=== PATIENT | female | born 1945 | race Caucasian/White ===

== ENCOUNTER 2016-05-07 14:42 | Inpatient (IN) | payer MEDICARE, MEDICAID ==
[~2016-05-07] VITALS: Ht 165.1 cm; Wt 69.9 kg
[2016-05-07 15:36] LABS: BASOPHILS % (AUTO) 0.3 % (0.0-2.0); DIFF TOTAL % 100 %; EOSINOPHILS # (AUTO) 0.3 /CMM (0.0-0.7); HEMATOCRIT 42 % (33-45); HEMOGLOBIN 13.5 g/dL (11.5-14.8); LYMPHOCYTES # (AUTO) 1.5 /CMM (0.8-4.8); LYMPHOCYTES % (AUTO) 15.8 % (20.0-44.0); MEAN CORPUSCULAR HEMOGLOBIN 30 PG (26.0-33.0); MEAN CORPUSCULAR HGB CONC 33 g/dl (31.0-36.0); MEAN CORPUSCULAR VOLUME 93 fL (82-100); MONOCYTES # (AUTO) 0.9 /CMM (0.1-1.30); MONOCYTES % (AUTO) 9.4 % (2.0-12.0); NEUTROPHILS % (AUTO) 71.5 % (43.0-81.0); PLATELET COUNT (AUTO) 164 /CMM (150-450); RED BLOOD CELL COUNT(AUTO) 4.49 MIL/uL (4.0-5.2); WHITE BLOOD COUNT (AUTO) 9.8 K/uL (4.3-11.0)
[2016-05-07 15:46] LABS: ANION GAP 15 (5-14); CALCIUM, SERUM 9.2 mg/dL (8.5-10.1); CARBON DIOXIDE 23 mmol/L (21-32); CHLORIDE 110 mmol/L (98-107); CREATININE 1.5 mg/dL (0.6-1.3); GFR 34 mL/min (>60); GLUCOSE 91 mg/dL (74-106); POTASSIUM 4.2 mmol/L (3.5-5.1); SODIUM SERUM 144 mmol/L (136-145); UREA NITROGEN, BLOOD 33 mg/dL (7-18)
[2016-05-07 15:51] LABS: ALANINE AMINOTRANSFERASE 15 U/L (12-78); ALBUMIN 3.7 g/dL (3.4-5.0); ASPARTATE AMINOTRANSFERASE 11 U/L (15-37); BILIRUBIN,DIRECT 0.1 mg/dL (0.0-0.2); BILIRUBIN,TOTAL 0.3 mg/dL (0.2-1.0); INDIRECT BILIRUBIN 0.2 mg/dL (0.0-1.1); TOTAL PROTEIN, SERUM 8.2 g/dL (6.4-8.2)
[2016-05-07 15:54] LABS: ACETAMINOPHEN 0 ug/ml (10-30); SALICYLATE 0.8 mg/dL (2.8-20.0)
[2016-05-07 16:46] LABS: ADD UA MICROSCOPIC NO; KETONES,URINE NEGATIVE (NEGATIVE); LEUKOCYTE ESTERASE ,URINE NEGATIVE (NEGATIVE)
[2016-05-07 17:00] LABS: CANNABINOID, URINE NEGATIVE (NEGATIVE); PHENCYCLIDINE SCREEN,URINE NEGATIVE (NEGATIVE)
[2016-05-07] MEDS ORDERED: VALS80TA2 PO (17:36)
[2016-05-07] MEDS ORDERED: MAGN400O6 PO (17:36)
[2016-05-07] MEDS ORDERED: ACET-868 PO (17:36)
[2016-05-07] MEDS ORDERED: DIGO250T PO (17:36)
[2016-05-07] MEDS ORDERED: NITR0.4T6 SL (17:36)
[2016-05-07] MEDS ORDERED: DIGO125T PO (17:36)
[2016-05-07] MEDS ORDERED: DEXT15DR6 EACHEYE (17:36)
[2016-05-07] MEDS ORDERED: AMLO2.5T PO (17:36)
[2016-05-07] MEDS ORDERED: AMIO200T2 PO (17:36)
[2016-05-07] MEDS ORDERED: APIX2.5T PO (17:36)
[2016-05-07] MEDS ORDERED: SITA100T PO (17:36)
[2016-05-07 19:10] VITALS: BP 153/61
[2016-05-07] MEDS ORDERED: TEMAZEPAM 7.5 MG CAPSULE PO PRN (20:00)
[2016-05-07] MEDS ORDERED: LORAZEPAM 0.5 MG TABLET PO PRN (20:00)
[2016-05-07] MEDS ORDERED: MAG HYDROX/AL HYDROX/SIMETH 30 ML UDC PO PRN (20:00)
[2016-05-07] MEDS ORDERED: MAGNESIUM HYDROXIDE 30 ML UDC PO PRN ×2 (20:00→21:30)
[2016-05-07] MEDS ORDERED: DIGOXIN 0.125 MG TABLET PO SCH (21:30)
[2016-05-07] MEDS ORDERED: DEXTROSE 50%-WATER 50 ML DISP.SYRIN IV PRN (21:30)
[2016-05-07] MEDS ORDERED: INSULIN REGULAR, HUMAN 100 UNIT/ML 3 ML VIAL SQ PRN (21:30)
[2016-05-07] MEDS ORDERED: NITROGLYCERIN 0.4 MG/TAB BOTTLE SL PRN (21:30)
[2016-05-07] MEDS ORDERED: ACETAMINOPHEN 325 MG TABLET PO PRN (21:30)
[2016-05-07] MEDS ORDERED: POLYVINYL ALCOHOL 15 ML BOTTLE EACHEYE PRN (21:30)
[2016-05-07] MEDS: BLOOD SUGAR DIAGNOSTIC 1 EACH STRIP IN SCH (22:00)
[2016-05-07] MEDS ORDERED: DIGOXIN 0.125 MG TABLET ONE (23:03)
[2016-05-08 01:58] VITALS: BP 153/61
[2016-05-08] MEDS: BLOOD SUGAR DIAGNOSTIC 1 EACH STRIP IN SCH ×4 (07:28→22:09)
[2016-05-08 07:52] LABS: BASOPHILS % (AUTO) 0.3 % (0.0-2.0); DIFF TOTAL % 100 %; EOSINOPHILS # (AUTO) 0.4 /CMM (0.0-0.7); EOSINOPHILS % (AUTO) 5.2 % (0.0-6.0); HEMATOCRIT 39 % (33-45); HEMOGLOBIN 12.8 g/dL (11.5-14.8); LYMPHOCYTES # (AUTO) 1.5 /CMM (0.8-4.8); MEAN CORPUSCULAR HEMOGLOBIN 31 PG (26.0-33.0); MEAN CORPUSCULAR HGB CONC 33 g/dl (31.0-36.0); MEAN CORPUSCULAR VOLUME 92 fL (82-100); MONOCYTES # (AUTO) 0.9 /CMM (0.1-1.30); MONOCYTES % (AUTO) 10.9 % (2.0-12.0); NEUTROPHILS # (AUTO) 5.5 /CMM (1.8-8.9); NEUTROPHILS % (AUTO) 65.6 % (43.0-81.0); PLATELET COUNT (AUTO) 173 /CMM (150-450); RED BLOOD CELL COUNT(AUTO) 4.19 MIL/uL (4.0-5.2); WHITE BLOOD COUNT (AUTO) 8.3 K/uL (4.3-11.0)
[2016-05-08 08:00] VITALS: BP 157/94
[2016-05-08 08:05] LABS: ALBUMIN 3.3 g/dL (3.4-5.0); BILIRUBIN,TOTAL 0.3 mg/dL (0.2-1.0); CALCIUM, SERUM 9.3 mg/dL (8.5-10.1); CREATININE 1.1 mg/dL (0.6-1.3); POTASSIUM 3.9 mmol/L (3.5-5.1); TOTAL PROTEIN, SERUM 7.3 g/dL (6.4-8.2)
[2016-05-08] MEDS: SITAGLIPTIN PHOSPHATE 50 MG TABLET PO SCH (09:29)
[2016-05-08] MEDS: AMLODIPINE BESYLATE 2.5 MG TABLET PO SCH (09:30)
[2016-05-08] MEDS: AMIODARONE HCL 200 MG TABLET PO SCH (09:30)
[2016-05-08] MEDS: VALSARTAN 80 MG TABLET PO SCH ×2 (09:30→16:56)
[2016-05-08] MEDS: ACETAMINOPHEN 325 MG TABLET PO PRN (14:50)
[2016-05-08 16:00] VITALS: BP 126/71
[2016-05-08] MEDS: APIXABAN 2.5 MG TABLET PO SCH (16:58)
[2016-05-08] MEDS: DIVALPROEX SODIUM 125 MG TABLET.DR PO SCH (18:09)
[2016-05-08 20:00] VITALS: BP 145/62
[2016-05-08] MEDS ORDERED: QUETIAPINE FUMARATE 25 MG TABLET PO SCH (22:00)
[2016-05-08] MEDS: DIGOXIN 0.25 MG TABLET PO SCH (22:09)
[2016-05-09] MEDS: BLOOD SUGAR DIAGNOSTIC 1 EACH STRIP IN SCH ×2 (07:54→12:18)
[2016-05-09 08:00] VITALS: BP 115/76
[2016-05-09] MEDS: SITAGLIPTIN PHOSPHATE 50 MG TABLET PO SCH (08:29)
[2016-05-09] MEDS: DIVALPROEX SODIUM 125 MG TABLET.DR PO SCH ×2 (08:29→17:30)
[2016-05-09] MEDS: AMIODARONE HCL 200 MG TABLET PO SCH (08:29)
[2016-05-09] MEDS: AMLODIPINE BESYLATE 2.5 MG TABLET PO SCH (08:30)
[2016-05-09] MEDS: VALSARTAN 80 MG TABLET PO SCH ×2 (08:30→17:00)
[2016-05-09] MEDS: APIXABAN 2.5 MG TABLET PO SCH ×2 (08:32→17:32)
[2016-05-09] MEDS: DIGOXIN 0.125 MG TABLET PO SCH (12:24)
[2016-05-09 16:00] VITALS: BP 106/62
[2016-05-09 20:00] VITALS: BP 140/76
[2016-05-09] MEDS ORDERED: QUETIAPINE FUMARATE 25 MG TABLET PO SCH (22:00)
[2016-05-10 08:00] VITALS: BP 102/71
[2016-05-10] MEDS: SITAGLIPTIN PHOSPHATE 50 MG TABLET PO SCH (08:21)
[2016-05-10] MEDS: DIVALPROEX SODIUM 125 MG TABLET.DR PO SCH ×3 (08:22→16:26)
[2016-05-10] MEDS: AMIODARONE HCL 200 MG TABLET PO SCH (08:22)
[2016-05-10] MEDS: APIXABAN 2.5 MG TABLET PO SCH ×2 (08:25→16:26)
[2016-05-10] MEDS: AMLODIPINE BESYLATE 2.5 MG TABLET PO SCH (08:26)
[2016-05-10] MEDS: VALSARTAN 80 MG TABLET PO SCH ×2 (08:26→16:26)
[2016-05-10] MEDS: ACETAMINOPHEN 325 MG TABLET PO PRN (08:31)
[2016-05-10 09:11] LABS: CALCIUM, SERUM 9.5 mg/dL (8.5-10.1); CREATININE 1.5 mg/dL (0.6-1.3)
[2016-05-10] MEDS: DIGOXIN 0.125 MG TABLET PO SCH (12:10)
[2016-05-10 16:00] VITALS: BP 106/72
[2016-05-10 19:43] VITALS: BP 130/59
[2016-05-10] MEDS: QUETIAPINE FUMARATE 25 MG TABLET PO SCH (21:03)
[2016-05-11 08:00] VITALS: BP 113/68
[2016-05-11] MEDS: AMIODARONE HCL 200 MG TABLET PO SCH (08:27)
[2016-05-11] MEDS: SITAGLIPTIN PHOSPHATE 50 MG TABLET PO SCH (08:27)
[2016-05-11] MEDS: AMLODIPINE BESYLATE 2.5 MG TABLET PO SCH (08:27)
[2016-05-11] MEDS: VALSARTAN 80 MG TABLET PO SCH ×2 (08:28→16:44)
[2016-05-11] MEDS: APIXABAN 2.5 MG TABLET PO SCH ×2 (08:29→16:46)
[2016-05-11] MEDS: DIVALPROEX SODIUM 125 MG TABLET.DR PO SCH ×3 (08:29→16:44)
[2016-05-11 08:41] LABS: CALCIUM, SERUM 8.7 mg/dL (8.5-10.1); CREATININE 1.3 mg/dL (0.6-1.3)
[2016-05-11 16:16] VITALS: BP 115/61
[2016-05-11 20:00] VITALS: BP 116/74
[2016-05-11] MEDS: DIGOXIN 0.25 MG TABLET PO SCH (20:29)
[2016-05-11] MEDS: QUETIAPINE FUMARATE 25 MG TABLET PO SCH (20:30)
[2016-05-12 08:00] VITALS: BP 133/68
[2016-05-12] MEDS: DIVALPROEX SODIUM 125 MG TABLET.DR PO SCH ×4 (08:32→18:06)
[2016-05-12] MEDS: AMLODIPINE BESYLATE 2.5 MG TABLET PO SCH (08:32)
[2016-05-12] MEDS: VALSARTAN 80 MG TABLET PO SCH ×2 (08:32→18:04)
[2016-05-12] MEDS: SITAGLIPTIN PHOSPHATE 50 MG TABLET PO SCH (08:32)
[2016-05-12] MEDS: AMIODARONE HCL 200 MG TABLET PO SCH (08:33)
[2016-05-12] MEDS: APIXABAN 2.5 MG TABLET PO SCH ×2 (08:34→18:04)
[2016-05-12] MEDS: DIGOXIN 0.125 MG TABLET PO SCH (12:42)
[2016-05-12 20:13] VITALS: BP 108/60
[2016-05-12] MEDS: DIVALPROEX SODIUM 500 MG TABLET.DR PO SCH (21:21)
[2016-05-12] MEDS: QUETIAPINE FUMARATE 25 MG TABLET PO SCH (21:21)
[2016-05-13 08:07] VITALS: BP 107/58
[2016-05-13] MEDS: AMLODIPINE BESYLATE 2.5 MG TABLET PO SCH (09:00)
[2016-05-13] MEDS: AMIODARONE HCL 200 MG TABLET PO SCH (09:00)
[2016-05-13] MEDS: VALSARTAN 80 MG TABLET PO SCH ×2 (09:00→17:00)
[2016-05-13] MEDS: APIXABAN 2.5 MG TABLET PO SCH ×2 (09:04→16:20)
[2016-05-13] MEDS: SITAGLIPTIN PHOSPHATE 50 MG TABLET PO SCH (09:04)
[2016-05-13] MEDS: DIVALPROEX SODIUM 125 MG TABLET.DR PO SCH ×2 (09:04→16:21)
[2016-05-13 16:00] VITALS: BP 104/61
[2016-05-13 20:00] VITALS: BP 114/50
[2016-05-13] MEDS: DIGOXIN 0.25 MG TABLET PO SCH (21:40)
[2016-05-13] MEDS: DIVALPROEX SODIUM 500 MG TABLET.DR PO SCH (21:40)
[2016-05-13] MEDS: QUETIAPINE FUMARATE 25 MG TABLET PO SCH (21:40)
[2016-05-14] MEDS: AMIODARONE HCL 200 MG TABLET PO SCH (08:35)
[2016-05-14] MEDS: DIVALPROEX SODIUM 125 MG TABLET.DR PO SCH ×2 (08:36→16:53)
[2016-05-14] MEDS: AMLODIPINE BESYLATE 2.5 MG TABLET PO SCH (08:36)
[2016-05-14] MEDS: SITAGLIPTIN PHOSPHATE 50 MG TABLET PO SCH (08:36)
[2016-05-14] MEDS: APIXABAN 2.5 MG TABLET PO SCH ×2 (08:37→16:53)
[2016-05-14] MEDS: VALSARTAN 80 MG TABLET PO SCH ×3 (08:42→16:55)
[2016-05-14 09:06] VITALS: BP 116/66
[2016-05-14 12:36] VITALS: BP 131/68
[2016-05-14] MEDS: DIGOXIN 0.125 MG TABLET PO SCH (12:36)
[2016-05-14 16:00] VITALS: BP 114/58
[2016-05-14 20:00] VITALS: BP 124/63
[2016-05-14] MEDS: QUETIAPINE FUMARATE 25 MG TABLET PO SCH (21:12)
[2016-05-14] MEDS: DIVALPROEX SODIUM 500 MG TABLET.DR PO SCH (21:12)
[2016-05-15 08:00] VITALS: BP 132/84
[2016-05-15] MEDS: SITAGLIPTIN PHOSPHATE 50 MG TABLET PO SCH (08:24)
[2016-05-15] MEDS: AMIODARONE HCL 200 MG TABLET PO SCH (08:24)
[2016-05-15] MEDS: DIVALPROEX SODIUM 125 MG TABLET.DR PO SCH (08:25)
[2016-05-15] MEDS: AMLODIPINE BESYLATE 2.5 MG TABLET PO SCH (08:25)
[2016-05-15 08:26] VITALS: BP 132/84
[2016-05-15] MEDS: VALSARTAN 80 MG TABLET PO SCH (08:26)
[2016-05-15] MEDS: APIXABAN 2.5 MG TABLET PO SCH (08:27)
== END 2016-05-15 12:00 | DRG 885 ==
LOC: ER 14:44 → GPS 18:42
PROVIDERS: ADMIT Psychiatry & Neurology Psychiatry; ATTEND Nurse Practitioner Acute Care
DX: F29 Unspecified psychosis not due to a substance or known physiological condition (principal); N17.0 Acute kidney failure with tubular necrosis; N18.9 Chronic kidney disease, unspecified; E44.1 Mild protein-calorie malnutrition; I42.9 Cardiomyopathy, unspecified; F03.91 Unspecified dementia, unspecified severity, with behavioral disturbance; I13.0 Hypertensive heart and chronic kidney disease with heart failure and stage 1 through stage 4 chronic kidney disease, or unspecified chronic kidney disease; F41.9 Anxiety disorder, unspecified; I25.10 Atherosclerotic heart disease of native coronary artery without angina pectoris; I50.9 Heart failure, unspecified; I48.91 Unspecified atrial fibrillation; E11.22 Type 2 diabetes mellitus with diabetic chronic kidney disease; E86.9 Volume depletion, unspecified; E03.9 Hypothyroidism, unspecified; Z95.1 Presence of aortocoronary bypass graft; Z73.6 Limitation of activities due to disability; E88.09 Other disorders of plasma-protein metabolism, not elsewhere classified; E11.9 Type 2 diabetes mellitus without complications; E86.0 Dehydration; Z95.0 Presence of cardiac pacemaker; Z68.25 Body mass index [BMI] 25.0-25.9, adult; F31.5 Bipolar disorder, current episode depressed, severe, with psychotic features
CPT/HCPCS: 36415; 80048-TC; 80053-TC; 80061-TC; 80076-TC; 80162-TC; 80164-TC; 80305; 81000-TC; 82962-TC; 85025-TC; 87081-TC; A4606; G0480; G6039-TC; J1815; Z7610

== ENCOUNTER 2017-03-09 13:07 | Inpatient (IN) | payer MEDICARE, MEDICAID ==
[~2017-03-09] VITALS: Ht 165.1 cm; Wt 64.0 kg
[~2017-03-09 13:07] MED LIST: ACET-868 PO; AMIO200T2 PO; AMLO2.5T PO; APIX2.5T PO; DEXT15DR6 EACHEYE; DIGO125T PO; DIGO250T PO; MAGN400O6 PO; NITR0.4T48 SL; SITA100T PO; VALS80TA2 PO
--- NOTE | 2017-03-09 13:10 | NUR ---
PT BIBRA FROM HOME TO ER BED 11. PER REPORT, PT IS C/O HEADACHE AND L SIDED CHEST PAIN X TODAY AFTER STRESSING OUT W/ FAMILY ISSUES. GOWNED AND PLACED ON MONITOR. AWAITING MD HODGES.
--- NOTE | 2017-03-09 15:20 | NUR ---
DR YO AT BEDSIDE FOR EVAL.
--- NOTE | 2017-03-09 15:27 | NUR ---
RADIOLOGICAL HEALTH SPECIALIST AT BEDSIDE FOR BLOOD DRAW.
[2017-03-09 15:37] LABS: BASOPHILS # (AUTO) 0.3 /CMM (0.0-0.2); BASOPHILS % (AUTO) 2.3 % (0.0-2.0); EOSINOPHILS # (AUTO) 0.7 /CMM (0.0-0.7); EOSINOPHILS % (AUTO) 6.4 % (0.0-6.0); HEMATOCRIT 45 % (33-45); HEMOGLOBIN 15.1 g/dL (11.5-14.8); LYMPHOCYTES # (AUTO) 1.7 /CMM (0.8-4.8); LYMPHOCYTES % (AUTO) 15.6 % (20.0-44.0); MEAN CORPUSCULAR HEMOGLOBIN 31 PG (26.0-33.0); MEAN CORPUSCULAR HGB CONC 34 g/dl (31.0-36.0); MEAN CORPUSCULAR VOLUME 93 fL (82-100); MONOCYTES # (AUTO) 0.8 /CMM (0.1-1.30); MONOCYTES % (AUTO) 7.2 % (2.0-12.0); NEUTROPHILS # (AUTO) 7.6 /CMM (1.8-8.9); NEUTROPHILS % (AUTO) 68.5 % (43.0-81.0); PLATELET COUNT (AUTO) 122 /CMM (150-450); WHITE BLOOD COUNT (AUTO) 11.1 K/uL (4.3-11.0)
[2017-03-09 15:47] LABS: CALCIUM, SERUM 9.4 mg/dL (8.5-10.1); CARBON DIOXIDE 26 mmol/L (21-32); CHLORIDE 105 mmol/L (98-107); GLUCOSE 107 mg/dL (74-106); POTASSIUM 3.8 mmol/L (3.5-5.1); SODIUM SERUM 139 mmol/L (136-145); UREA NITROGEN, BLOOD 17 mg/dL (7-18)
[2017-03-09 15:50] LABS: PROTHROMBIN TIME 10.4 SECS (9.5-12.7)
[2017-03-09 15:54] LABS: ALANINE AMINOTRANSFERASE 16 U/L (12-78); ALBUMIN 3.8 g/dL (3.4-5.0); ALKALINE PHOSPHATASE 96 U/L (46-116); ASPARTATE AMINOTRANSFERASE 18 U/L (15-37); BILIRUBIN,DIRECT 0.1 mg/dL (0.0-0.2); BILIRUBIN,TOTAL 0.7 mg/dL (0.2-1.0); TOTAL PROTEIN, SERUM 7.8 g/dL (6.4-8.2)
[2017-03-09 16:00] LABS: TROPONIN I 0.635 ng/mL (0.00-0.056)
--- NOTE | 2017-03-09 17:00 | NUR ---
CALLED NURSING SUP. FOR TELE BED
--- NOTE | 2017-03-09 17:05 | NUR ---
LEVI PAGED, ENVIRONMENTAL FIELD PROFESSIONAL
[2017-03-09] MEDS ORDERED: CLOP75TA15 PO (17:44)
[2017-03-09] MEDS ORDERED: QUET100T PO (17:44)
[2017-03-09] MEDS ORDERED: NITR0.4T48 SL (17:44)
[2017-03-09] MEDS ORDERED: PANT40TA4 PO (17:44)
[2017-03-09] MEDS ORDERED: TEMA15CA PO (17:44)
[2017-03-09] MEDS ORDERED: LORA1TAB PO (17:44)
[2017-03-09] MEDS ORDERED: RIVA1.5C7 PO (17:44)
--- NOTE | 2017-03-09 19:49 | NUR ---
TELE 307-2
[2017-03-09 20:00] VITALS: BP 130/73
--- NOTE | 2017-03-09 20:12 | NUR ---
TRANSFERRED PATIENT TO TELE BED 307 VIA ALS PROTOCOL, NO INCIDENT NOTED.
[2017-03-09 20:15] VITALS: BP 130/73
--- NOTE | 2017-03-09 20:15 | NUR ---
RN OPEN NOTES RECEIVED PATIENT FROM ER VIA [facility] IN STABLE CONDITION. A/O X3. NO SIGNS OF DISTRESS OR DISCOMFORT. BREATHING EVEN AND UNLABORED. IV ACCESS IN L HAND, PATENT AND INTACT, NO SIGNS OF REDNESS OR INFILTRATION. STATES HAVING HEADACHE PAIN 5/10 AT THIS TIME. ORIENTED PATIENT TO UNIT AND ROOM. SKIN INTACT. BED IN LOW LOCKED POSITION WITH SIDE RAILS X2. CALL LIGHT WITHIN REACH. WILL CONTINUE TO MONITOR.
[2017-03-09] MEDS ORDERED: MAGNESIUM HYDROXIDE 30 ML UDC PO PRN (21:30)
[2017-03-09] MEDS ORDERED: NITROGLYCERIN 0.4 MG/TAB BOTTLE SL PRN (21:30)
[2017-03-09] MEDS ORDERED: HYDROCODONE/APAP 5/325MG 1 EACH TABLET PO PRN (21:30)
[2017-03-09] MEDS ORDERED: ACETAMINOPHEN 325 MG TABLET PO PRN (21:30)
[2017-03-09] MEDS ORDERED: Z GUARD REMEDY 2 OZ OINT TP PRN (21:30)
[2017-03-09] MEDS ORDERED: ONDANSETRON HCL/PF 4 MG/2 ML VIAL IVP PRN (21:30)
[2017-03-09] MEDS ORDERED: LORAZEPAM 1 MG TABLET PO PRN (21:30)
[2017-03-09] MEDS ORDERED: ZOLPIDEM TARTRATE 5 MG TABLET PO PRN (21:30)
[2017-03-09] MEDS ORDERED: MAG HYDROX/AL HYDROX/SIMETH 30 ML UDC PO PRN (21:30)
[2017-03-09] MEDS: QUETIAPINE FUMARATE 100 MG TABLET PO SCH (21:52)
[2017-03-09] MEDS: ASPIRIN EC 325 MG TABLET.DR PO SCH (21:52)
[2017-03-10] VITALS: BP 124/51
[2017-03-10 04:00] VITALS: BP 107/57
[2017-03-10 05:14] LABS: CALCIUM, SERUM 8.9 mg/dL (8.5-10.1); CARBON DIOXIDE 25 mmol/L (21-32); CHLORIDE 109 mmol/L (98-107); GLUCOSE 103 mg/dL (74-106); MAGNESIUM 1.9 mg/dL (1.8-2.4); PHOSPHORUS 3.9 mg/dL (2.5-4.9); POTASSIUM 3.5 mmol/L (3.5-5.1); SODIUM SERUM 145 mmol/L (136-145); UREA NITROGEN, BLOOD 18 mg/dL (7-18)
[2017-03-10 05:19] LABS: CHOLESTEROL 159 mg/dL (<200); HDL CHOLESTEROL 61 mg/dL (40-60); LDL 93 mg/dL (0-99); TRIGLYCERIDES 66 mg/dL (30-150)
[2017-03-10 05:23] LABS: BASOPHILS % (AUTO) 0.4 % (0.0-2.0); EOSINOPHILS # (AUTO) 1.1 /CMM (0.0-0.7); EOSINOPHILS % (AUTO) 13.4 % (0.0-6.0); HEMATOCRIT 39 % (33-45); HEMOGLOBIN 13.3 g/dL (11.5-14.8); LYMPHOCYTES % (AUTO) 24.5 % (20.0-44.0); MEAN CORPUSCULAR HEMOGLOBIN 32 PG (26.0-33.0); MEAN CORPUSCULAR HGB CONC 34 g/dl (31.0-36.0); MEAN CORPUSCULAR VOLUME 95 fL (82-100); MONOCYTES # (AUTO) 0.8 /CMM (0.1-1.30); MONOCYTES % (AUTO) 9.9 % (2.0-12.0); NEUTROPHILS # (AUTO) 4.2 /CMM (1.8-8.9); NEUTROPHILS % (AUTO) 51.8 % (43.0-81.0); PLATELET COUNT (AUTO) 118 /CMM (150-450); RDW COEFFICIENT OF VARIATION 14.5 (11.5-15.0); RED BLOOD CELL COUNT(AUTO) 4.11 MIL/uL (4.0-5.2)
--- NOTE | 2017-03-10 06:40 | NUR ---
RN CLOSING NOTES PATIENT RESTING IN BED, EASILY AROUSABLE. A/O X3. NO SIGNS OF DISTRESS OR DISCOMFORT. BREATHING EVEN AND UNLABORED. IV ACCESS IN L HAND, PATENT AND INTACT, NO SIGNS OF REDNESS OR INFILTRATION. ON TELE MONITORING WITH V-PACING 71 NOTED. ALL NEEDS MET. NO SIGNIFICANT CHANGES THROUGH THE NIGHT. BED IN LOW LOCKED POSITION WITH SIDE RAILS X2. CALL LIGHT WITHIN REACH. WILL ENDORSE TO AM SHIFT FOR AJIT.
[2017-03-10 08:00] VITALS: BP 116/70
--- NOTE | 2017-03-10 08:00 | NUR ---
RN OPENING NOTES RECEIVED PATIENT IN BED, ALERT ORIENTED, VERBALLY RESPONSIVE. NO SOB NOTED. NO SIGN OF ACUTE DISTRESS NOTED. BREATHING REGULAR AND UNLABORED. SKIN IS SOFT AND WARM TO TOUCH. IV ACCESS INTACT AND PATENT. NO REDNESS. NO S/SX OF INFILTRATION. SAFETY MEASURES IN PLACE. CALL LIGHT PLACED WITHIN REACH. WILL CONTINUE TO MONITOR ACCORDINGLY.
[2017-03-10] MEDS: AMIODARONE HCL 200 MG TABLET PO SCH (08:52)
[2017-03-10] MEDS: RIVASTIGMINE TARTRATE 1.5 MG CAPSULE PO SCH ×2 (08:53→17:24)
[2017-03-10] MEDS: ASPIRIN EC 325 MG TABLET.DR PO SCH (08:53)
[2017-03-10] MEDS: CLOPIDOGREL BISULFATE 75 MG TABLET PO SCH (08:53)
[2017-03-10] MEDS: PANTOPRAZOLE 40 MG TABLET.DR PO SCH (08:53)
[2017-03-10 12:20] LABS: THYROID STIMULATING HORMONE 3.475 uIU/mL (0.358-3.74)
[2017-03-10] MEDS ORDERED: DIGOXIN 0.125 MG TABLET PO SCH (13:00)
--- NOTE | 2017-03-10 13:30 | NUR ---
RN NOTES PATIENT SEEN AND EVALUATED BY DR. YORK ORDERS NOTED AND CARRIED OUT.
[2017-03-10] MEDS ORDERED: APIXABAN 5 MG TABLET PO ONE (14:00)
[2017-03-10] MEDS: ISOSORBIDE MONONITRATE (30MG) 30 MG TAB.SR.24H PO SCH (14:45)
[2017-03-10 16:00] VITALS: BP 108/63
[2017-03-10] MEDS: APIXABAN 5 MG TABLET PO SCH (17:00)
--- NOTE | 2017-03-10 17:00 | NUR ---
RUBEN NOTES PATIENT WAS JUST ADMINISTERED ELIQUIS AT 1420 DUE TO MEDICATIONS BEING AVAILABLE ON THE FLOOR LATE. DOSE TO CLOSE TO PREVIOUS DOSE. HELD. Addendum: 03/10/17 at 1810 by CALE WINTER RN MS AWARE.
[2017-03-10] MEDS: TEMAZEPAM 15 MG CAPSULE PO SCH (17:29)
--- NOTE | 2017-03-10 19:25 | NUR ---
RN OPEN NOTES RECEIVED PATIENT AWAKE IN BED WATCHING TV. A/O X3. NO SIGNS OF DISTRESS OR DISCOMFORT. BREATHING EVEN AND UNLABORED. IV ACCESS IN L HAND, PATENT AND INTACT, NO SIGNS OF REDNESS OR INFILTRATION. BED IN LOW LOCKED POSITION WITH SIDE RAILS X2. CALL LIGHT WITHIN REACH. WILL CONTINUE TO MONITOR.
--- NOTE | 2017-03-10 19:30 | NUR ---
RN NOTES PATIENT IN BED RESTING NO SOB OR ACUTE DISTRESS NOTED. ALL DUE MEDICATIONS ADMINISTERED ALL NEEDS MET. PERIPHERAL IV INTACT PATENT. BED IN LOW LOCKED POSITION. CALL LIGHT WITHIN REACH. ENDORSED CARE TO PM SHIFT.
[2017-03-10 20:00] VITALS: BP 138/75
[2017-03-10] MEDS: QUETIAPINE FUMARATE 100 MG TABLET PO SCH (21:18)
[2017-03-10] MEDS: ATORVASTATIN 10 MG TABLET PO SCH (21:18)
--- NOTE | 2017-03-11 07:16 | NUR ---
RN CLOSING NOTES PATIENT AWAKE IN BED, EASILY AROUSABLE. A/O X3. NO SIGNS OF DISTRESS OR DISCOMFORT. BREATHING EVEN AND UNLABORED. IV ACCESS IN L HAND, PATENT AND INTACT, NO SIGNS OF REDNESS OR INFILTRATION. ALL NEEDS MET. NO SIGNIFICANT CHANGES THROUGH THE NIGHT. BED IN LOW LOCKED POSITION WITH SIDE RAILS X2. CALL LIGHT WITHIN REACH. ENDORSED TO AM SHIFT FOR AJIT.
--- NOTE | 2017-03-11 07:35 | NUR ---
MS RN OPENING NOTES. RECEIVED PT SITTING AT EDGE OF BED A&0X3, CONVERSATIONAL WITH SOME CONFUSION R/T WHY PT IS IN HOSPITAL. PT TOLERATING ROOM AIR WITHOUT SOB OR RESP DISTRESS. PT DENIES CHEST PAIN AT THIS TIME AND REPORTS BEING PAIN FREE OVERNIGHT. PT WITH IVC AT L HAND REQUIRES NEW DRESSING BUT IS SALINE FLUSHED PATENT. BED IN LOWEST LOCKED POSITION WITH WITH HANDRAILSX2 AND CALL BRODY WITHIN REACH. PT BRIEFED ON TODAY'S POC, PT IS WITHOUT CONCERN OR COMPLAINT THIS TIME.
[2017-03-11 08:00] VITALS: BP 161/90
[2017-03-11] MEDS: PANTOPRAZOLE 40 MG TABLET.DR PO SCH (09:08)
[2017-03-11] MEDS: CLOPIDOGREL BISULFATE 75 MG TABLET PO SCH (09:08)
[2017-03-11] MEDS: RIVASTIGMINE TARTRATE 1.5 MG CAPSULE PO SCH ×2 (09:08→17:20)
[2017-03-11] MEDS: AMIODARONE HCL 200 MG TABLET PO SCH (09:09)
[2017-03-11] MEDS: ISOSORBIDE MONONITRATE (30MG) 30 MG TAB.SR.24H PO SCH (09:09)
[2017-03-11] MEDS: APIXABAN 5 MG TABLET PO SCH ×2 (09:16→17:32)
--- NOTE | 2017-03-11 13:02 | NUR ---
RN NOTES. RN BASED AT DOOR WAY FOR SUPERVISION. PT AT DOOR WAY, APPEARING UNSTABLE/ PT ASSISTED T0 BED. BP X3. LAYING BP:132/77, HR 74, SAO2 97%. SITTING BP:142/67, HR 71, SAO2 97% STANDING BP:141/77, HR 75, SAO2 97% PT REMAINS A&0X3, DENIES PAIN OR DISCOMFORT. NO S/S OF DISTRESS. REPORTS BEING 'NORMAL'.
[2017-03-11] MEDS: TEMAZEPAM 15 MG CAPSULE PO SCH (17:29)
--- NOTE | 2017-03-11 19:30 | NUR ---
RN OPENING NOTES PATIENT IS RESTING IN BED, ALERT AND ORIENTED X3. SITTER PRESENT AT BEDSIDE. VS STABLE. NO C/O PAIN AT THIS TIME. NO SOB NOTED. RESPIRATIONS EVEN AND UNLABORED. IV ACCESS AT L HAND 20 G SL PATENT AND INTACT, FLUSHING WELL WITH NS, NO REDNESS OR INFILTRATION NOTED. BED IN LOW AND LOCKED POSITION, SIDE RAILSX3. CALL LIGHT WITHIN EASY REACH. WILL CONTINUE TO MONITOR AND ASSESS DURING THE SHIFT.
--- NOTE | 2017-03-11 19:48 | NUR ---
RN CLOSING NOTES. PT A&0X1, PREDOMINANTLY UNSETTLED AND WANDERING. PT TURNING OFF BED ALARM AND WANDERING. PT IS UNSTEADY AND IS A HIGH [place]ALLS RISK. PT REQUIRING CONSTANT ATTENTION FOR SAFETY REORIENTATION. PT TOLERATING ROOM AIR WITHOUT SOB. PT REPORTING NO PAIN. PT WITH IVC AT L HAND G#20 INTACT AND SL. BED IN LOWEST LOCKED POSITION WITH HANDRAILSX2 AND CALL BRODY WITHIN REACH. ALL DAY SHIFT DUTIES ATTENDED TO. PT WITHOUT CONCERN OR COMPLAINT. WILL ENDORSE TO NIGHT NURSE.
[2017-03-11 20:00] VITALS: BP_SYST 135; BP_SYST 140; BP_DIAS 71; BP_DIAS 76
[2017-03-11] MEDS: ATORVASTATIN 10 MG TABLET PO SCH (21:50)
[2017-03-11] MEDS: QUETIAPINE FUMARATE 100 MG TABLET PO SCH (21:50)
--- NOTE | 2017-03-12 07:01 | NUR ---
RN CLOSING NOTES PATIENT IS SLEEPING IN BED, EASY TO AROUSE, ALERT AND ORIENTED X3. SITTER PRESENT AT BEDSIDE. VS STABLE. NO SOB NOTED. RESPIRATIONS EVEN AND UNLABORED. IV ACCESS AT L HAND 20 G SL PATENT AND INTACT, FLUSHING WELL WITH NS, NO REDNESS OR INFILTRATION NOTED. ALL NEEDS ARE MET AND MEDICATIONS GIVEN PER MD ORDER. BED IN LOW AND LOCKED POSITION, SIDE RAILSX3. CALL LIGHT WITHIN EASY REACH. WILL ENDORSE TO RN DAY SHIFT FOR AJIT.
--- NOTE | 2017-03-12 07:30 | NUR ---
m/s divinity professor: initial assessment received pt in bed awake, a/ox2-3 with dx: chest pain. p.t. tx in progress. no c/o chest pain or any discomfort. sitter at bedside. no h/l or iv noted at this time. pt refused iv insertion when offered. pt for d'c home today. in no apparent distress noted. will continue to monitor.
[2017-03-12 07:33] LABS: BASOPHILS % (AUTO) 0.3 % (0.0-2.0); EOSINOPHILS # (AUTO) 1.1 /CMM (0.0-0.7); EOSINOPHILS % (AUTO) 13.2 % (0.0-6.0); HEMATOCRIT 38 % (33-45); HEMOGLOBIN 13.3 g/dL (11.5-14.8); LYMPHOCYTES # (AUTO) 2.1 /CMM (0.8-4.8); LYMPHOCYTES % (AUTO) 23.6 % (20.0-44.0); MEAN CORPUSCULAR HEMOGLOBIN 33 PG (26.0-33.0); MEAN CORPUSCULAR HGB CONC 35 g/dl (31.0-36.0); MEAN CORPUSCULAR VOLUME 94 fL (82-100); MONOCYTES # (AUTO) 0.9 /CMM (0.1-1.30); NEUTROPHILS # (AUTO) 4.6 /CMM (1.8-8.9); NEUTROPHILS % (AUTO) 52.9 % (43.0-81.0); PLATELET COUNT (AUTO) 135 /CMM (150-450); RDW COEFFICIENT OF VARIATION 14.9 (11.5-15.0); RED BLOOD CELL COUNT(AUTO) 4.07 MIL/uL (4.0-5.2); WHITE BLOOD COUNT (AUTO) 8.7 K/uL (4.3-11.0)
[2017-03-12 08:12] LABS: CALCIUM, SERUM 9.4 mg/dL (8.5-10.1); CARBON DIOXIDE 28 mmol/L (21-32); CHLORIDE 107 mmol/L (98-107); CREATININE 1.1 mg/dL (0.6-1.3); GLUCOSE 84 mg/dL (74-106); POTASSIUM 3.7 mmol/L (3.5-5.1); SODIUM SERUM 143 mmol/L (136-145); UREA NITROGEN, BLOOD 19 mg/dL (7-18)
[2017-03-12] MEDS ORDERED: ATOR10TA PO (08:45)
[2017-03-12] MEDS ORDERED: APIX5TAB PO (08:45)
[2017-03-12] MEDS: AMIODARONE HCL 200 MG TABLET PO SCH (09:00)
[2017-03-12] MEDS: APIXABAN 5 MG TABLET PO SCH (09:00)
[2017-03-12] MEDS: ISOSORBIDE MONONITRATE (30MG) 30 MG TAB.SR.24H PO SCH (09:00)
[2017-03-12] MEDS: RIVASTIGMINE TARTRATE 1.5 MG CAPSULE PO SCH (09:00)
[2017-03-12] MEDS: CLOPIDOGREL BISULFATE 75 MG TABLET PO SCH (09:00)
[2017-03-12] MEDS: PANTOPRAZOLE 40 MG TABLET.DR PO SCH (09:00)
--- NOTE | 2017-03-12 09:00 | NUR ---
m/s manager documentation: md visit seen and examined by dr. ramos with order to d'c to board and care. order acknowledged.
--- NOTE | 2017-03-12 10:30 | NUR ---
m/s certified medication aide: notes p.t. in room with pt for tx.
--- NOTE | 2017-03-12 12:00 | NUR ---
m/s life manager: notes rosa isela (caregiver) notified and made aware re: d'c home today, stated, "i will pick her up." pt made aware.
--- NOTE | 2017-03-12 12:15 | NUR ---
m/s strap folding machine operator: notes discharge instructions given to pt and verbalized understanding. informed pt that she needs to f/u with primary medical doctor in one week and outpatient solid fiber paster operator and neurologist, pt verbalized understanding. pt has no iv/hl.
--- NOTE | 2017-03-12 14:44 | NUR ---
m/s diagnostic radiologist: notes pt anxiously wanting to go home. f/u made to rosa isela (caregiver), stated, "i'm on my way there in 45 minutes." pt made aware.
--- NOTE | 2017-03-12 16:00 | NUR ---
m/s certified master safe technician: notes pt resting comfortable in bed, still awaiting for her pickling grader.
--- NOTE | 2017-03-12 16:42 | NUR ---
m/s manufacturer: discharged discharged home accompanied by private caregiver via private car in stable condition with all belongings.
== END 2017-03-12 16:43 | disposition home or self-care (01) | DRG 281 ==
LOC: ER 13:08 → TELE 20:00 → MED 03-10 18:02
PROVIDERS: ADMIT Family Medicine; ATTEND Family Medicine
DX: I21.4 Non-ST elevation (NSTEMI) myocardial infarction (principal); I13.0 Hypertensive heart and chronic kidney disease with heart failure and stage 1 through stage 4 chronic kidney disease, or unspecified chronic kidney disease; E11.22 Type 2 diabetes mellitus with diabetic chronic kidney disease; I11.0 Hypertensive heart disease with heart failure; I50.9 Heart failure, unspecified; I48.0 Paroxysmal atrial fibrillation; E78.5 Hyperlipidemia, unspecified; E03.9 Hypothyroidism, unspecified; G43.109 Migraine with aura, not intractable, without status migrainosus; I50.22 Chronic systolic (congestive) heart failure; N18.9 Chronic kidney disease, unspecified; M54.30 Sciatica, unspecified side; Z88.5 Allergy status to narcotic agent; Z88.2 Allergy status to sulfonamides; Z88.0 Allergy status to penicillin; Z88.8 Allergy status to other drugs, medicaments and biological substances; Z91.018 Allergy to other foods; I70.0 Atherosclerosis of aorta; Z95.810 Presence of automatic (implantable) cardiac defibrillator; I25.10 Atherosclerotic heart disease of native coronary artery without angina pectoris; Z95.1 Presence of aortocoronary bypass graft; Z86.73 Personal history of transient ischemic attack (TIA), and cerebral infarction without residual deficits; Z79.899 Other long term (current) drug therapy; Z79.84 Long term (current) use of oral hypoglycemic drugs; Z79.01 Long term (current) use of anticoagulants; F29 Unspecified psychosis not due to a substance or known physiological condition; F03.90 Unspecified dementia, unspecified severity, without behavioral disturbance, psychotic disturbance, mood disturbance, and anxiety; F32.9 Major depressive disorder, single episode, unspecified; F41.9 Anxiety disorder, unspecified; G44.209 Tension-type headache, unspecified, not intractable; I25.5 Ischemic cardiomyopathy
CPT/HCPCS: 36415; 70450-TC; 71045-TC; 80048-TC; 80061-TC; 80076-TC; 80162-TC; 83735-TC; 83880; 84100-TC; 84439-TC; 84443-TC; 84484-TC; 85025-TC; 85730-TC; 87081-TC; 93307-TC; 93880-TC; A4606; Z7610

== ENCOUNTER 2018-04-29 17:04 | Inpatient (IN) | payer MEDICARE, MEDICAID ==
[~2018-04-29] VITALS: Ht 162.6 cm; Wt 68.0 kg
[~2018-04-29 17:04] MED LIST changes: -ACET-868 PO; -AMIO200T2 PO; +AMIO200T4 PO; -AMLO2.5T PO; -APIX2.5T PO; +APIX5TAB PO; +ASPI-1169 PO; +ATOR10TA PO; +CARV6.252 PO; -DEXT15DR6 EACHEYE; -DIGO125T PO; -DIGO250T PO; -MAGN400O6 PO; +PANT40TA4 PO; +QUET100T PO; -SITA100T PO; +SPIR25TA PO; +TRAZ-182 PO; +VALS160T2 PO; -VALS80TA2 PO
--- NOTE | 2018-04-29 17:04 | NUR ---
PT BIB PA [facility] FOR POSSIBLE PACEMAKER MALFUNCTION, PT IS AAOX4, NOT IN RESPIRATORY DISTRESS, V/S STABLE, HOOKED TO MONITOR, KEPT RESTED AND COMFORTABLE, WILL CONTINUE TO MONITOR.
--- NOTE | 2018-04-29 17:20 | NUR ---
SEEN AND EXAMINED BY DR. LOW.
[2018-04-29] MEDS ORDERED: APIX5TAB PO (17:28)
[2018-04-29] MEDS ORDERED: RIZA10TA27 PO (17:28)
[2018-04-29] MEDS ORDERED: ASPI-1152 PO (17:28)
[2018-04-29] MEDS ORDERED: LEVO50TA8 PO (17:28)
[2018-04-29] MEDS ORDERED: LOSA50TA39 PO (17:28)
[2018-04-29] MEDS ORDERED: MULT-447 PO (17:28)
[2018-04-29] MEDS ORDERED: ATOR10TA PO (17:28)
[2018-04-29 17:55] LABS: BASOPHILS # (AUTO) 0.1 /CMM (0.0-0.2); BASOPHILS % (AUTO) 1.1 % (0.0-2.0); EOSINOPHILS % (AUTO) 7.1 % (0.0-6.0); HEMATOCRIT 44 % (33-45); HEMOGLOBIN 14.5 g/dL (11.5-14.8); LYMPHOCYTES # (AUTO) 1.6 /CMM (0.8-4.8); LYMPHOCYTES % (AUTO) 18.3 % (20.0-44.0); MEAN CORPUSCULAR HGB CONC 33 g/dl (31.0-36.0); MEAN CORPUSCULAR VOLUME 102 fL (82-100); MONOCYTES # (AUTO) 0.8 /CMM (0.1-1.30); MONOCYTES % (AUTO) 9.7 % (2.0-12.0); NEUTROPHILS # (AUTO) 5.5 /CMM (1.8-8.9); NEUTROPHILS % (AUTO) 63.8 % (43.0-81.0); PLATELET COUNT (AUTO) 123 /CMM (150-450); RED BLOOD CELL COUNT(AUTO) 4.27 MIL/uL (4.0-5.2); WHITE BLOOD COUNT (AUTO) 8.7 K/uL (4.3-11.0)
--- NOTE | 2018-04-29 17:55 | NUR ---
LABS DRAWNED AND SENT TO LAB.
[2018-04-29 18:27] LABS: CALCIUM, SERUM 9.2 mg/dL (8.5-10.1); CARBON DIOXIDE 25 mmol/L (21-32); CHLORIDE 106 mmol/L (98-107); CREATININE 1.4 mg/dL (0.6-1.3); GLUCOSE 95 mg/dL (74-106); POTASSIUM 4.3 mmol/L (3.5-5.1); SODIUM SERUM 140 mmol/L (136-145); UREA NITROGEN, BLOOD 34 mg/dL (7-18)
[2018-04-29 18:39] LABS: ALANINE AMINOTRANSFERASE 15 U/L (12-78); ALBUMIN 3.7 g/dL (3.4-5.0); ALKALINE PHOSPHATASE 88 U/L (46-116); ASPARTATE AMINOTRANSFERASE 12 U/L (15-37); B-TYPE NATRIURETIC PEPTIDE 1392 PG/ML (0-125); BILIRUBIN,DIRECT 0.1 mg/dL (0.0-0.2); BILIRUBIN,TOTAL 0.2 mg/dL (0.2-1.0); TOTAL PROTEIN, SERUM 7.4 g/dL (6.4-8.2)
--- NOTE | 2018-04-29 19:29 | NUR ---
REPORT GIVEN TO RUBEN ISRAEL FOR AJIT.
--- NOTE | 2018-04-29 19:34 | NUR ---
REPORT RECEIVED FROM CHAD MIRANDA FOR AJIT.
--- NOTE | 2018-04-29 20:18 | NUR ---
REPORT GIVEN TO JULIO MAKI RN FOR AJIT.
[2018-04-29] MEDS ORDERED: ALBUTEROL SULFATE 8 GM HFA.AER.AD IH PRN ×2 (21:30)
--- NOTE | 2018-04-29 21:30 | NUR ---
EXPLOSIVES OPERATOR NOTES RECEIVED PT FROM ER NURSE CHERELLE. PT A/O X 4. ON ROOM AIR NO RESPIRATORY DISTRESS NOTED. ON TELE MONITOR AFIB 60. IV ACCESS ON RIGHT HAND G 20 SL. NO APPARENT SKIN ISSUES. PHYSICAL ASSESSMENT DONE. PAGED ARCHITECTURAL SUPERINTENDENT FOR TELEPHONE ORDERS. WILL MONITOR PT CLOSELY.
--- NOTE | 2018-04-29 21:58 | NUR ---
ELEVATOR ATTENDANT NOTES PER AIRFRAME TECHNICAL OFFICER LING, NO ORDERS FOR ELEVATED TROP. ONLY REPEAT TROP IN AM. PER AIRFRAME TECHNICAL OFFICER, CONTINUE ALL MEDS. GIVE LOVENOX 30MG SUBQ DAILY IF PT IS NOT TAKING ANY ANTI COAGULANTS. WILL MONITOR PT CLOSELY.
[2018-04-29] MEDS ORDERED: ALBUTEROL HALF STRENGTH 1.25 MG/3 ML VIAL.NEB NEB PRN (22:00)
--- NOTE | 2018-04-29 22:00 | NUR ---
COMPUTER AIDED DESIGN DRAFTER NOTES FAXED TO PHARMACY ALL HOME MEDS TO BE CONTINUED.
[2018-04-30] VITALS: BP 122/72
[2018-04-30] MEDS: ALBUTEROL HALF STRENGTH 1.25 MG/3 ML VIAL.NEB NEB SCH ×7 (00:03→23:57)
--- NOTE | 2018-04-30 00:04 | NUR ---
RT NOTES HHN TX WILL BE GIVEN ACCORDING TO SCHEDULE. WILL CONTINUE TO MONITOR.
--- NOTE | 2018-04-30 00:14 | NUR ---
BRAKE MECHANIC NOTES CALLED ONCALL FOR ORDERS OF PT COMPLAINING CHEST PAIN 5/10 IN THE STERNAL AREA. VITALS SIGNS WNL. WILL MONITOR PT CLOSELY.
--- NOTE | 2018-04-30 00:46 | NUR ---
PLANT MECHANIC NOTES PAGED LASTING ROOM SUPERVISOR X2 REGARDING PT CHEST PAIN 07/15. WILL MONITOR PT CLOSELY.
--- NOTE | 2018-04-30 00:59 | NUR ---
GLASS TOUGHENING OPERATOR NOTES DR VALDEZ ORDERED, NITROGLYCERIN .4 SL X3 Q5MINS FOR CHEST PAIN. AND MORPHINE 1MG IV Q2H CHEST PAIN.
[2018-04-30] MEDS ORDERED: ALBUTEROL SULFATE 8 GM HFA.AER.AD IH SCH (01:00)
--- NOTE | 2018-04-30 01:00 | NUR ---
DISEASE CONTROL INSPECTOR NOTES PER PT SHE IS ALLERGIC TO MORPHINE. WILL GIVE NITRO PRN.
[2018-04-30] MEDS: NITROGLYCERIN 0.4 MG/TAB BOTTLE SL PRN ×3 (01:11→18:22)
--- NOTE | 2018-04-30 01:42 | NUR ---
MARKETING RESEARCH INTERN NOTES PT RELIEVED OF CHEST PAIN /10 FROM 09/14. WILL MONITOR PT CLOSELY.
[2018-04-30 04:00] VITALS: BP 123/72
--- NOTE | 2018-04-30 06:36 | NUR ---
NURSE HEAD NOTES NO ACUTE CHANGES NOTED DURING THE SHIFT. CHEST PAIN RELIEVED BY NITROGLY, SLEEPING WELL THROUGHOUT THE NIGHT. WILL ENDORSE TO THE AM NURSE FOR CONTINUITY OF CARE.
--- NOTE | 2018-04-30 07:00 | NUR ---
NURSING SERVICES MANAGER OPENING NOTES RECEIVED PT IN BED, A/OX2 WITH SOME CONFUSION. ON RA. O2 SAT 96%. NO SOB NOTED. PT C/O CHEST PAIN LEVEL 5. ASSISTED PT TO BR. UNSTEADY GAIT NOTED. ON TELE SR W/ BBB.R HAND IV SL C/D/P/I. BED IN LOCKED/LOWEST POSITION. CALL LIGHT IN REACH. WILL CONT TO MONITOR.
[2018-04-30 08:00] VITALS: BP 152/80
[2018-04-30] MEDS ORDERED: NITROGLYCERIN 0.4 MG/TAB BOTTLE SL PRN (09:30)
[2018-04-30] MEDS: MULTIVIT W/MINERALS 1 TAB TABLET PO SCH (09:47)
[2018-04-30] MEDS: ASPIRIN EC 81 MG TABLET.DR PO SCH (09:47)
[2018-04-30] MEDS: AMIODARONE HCL 200 MG TABLET PO SCH (09:49)
[2018-04-30] MEDS: SPIRONOLACTONE 25 MG TABLET PO SCH (09:50)
[2018-04-30] MEDS: LOSARTAN POTASSIUM 50 MG TABLET PO SCH (09:50)
[2018-04-30] MEDS: APIXABAN 5 MG TABLET PO SCH ×2 (10:49→21:13)
[2018-04-30 12:00] VITALS: BP 146/80
--- NOTE | 2018-04-30 15:01 | NUR ---
[employer] notified regarding pacemaker check, awaits pacemaker check.
[2018-04-30 16:00] VITALS: BP_SYST 121; BP_SYST 136; BP_DIAS 73; BP_DIAS 76
[2018-04-30] MEDS ORDERED: FUROSEMIDE 40 MG/4 ML VIAL IV SCH (16:30)
[2018-04-30] MEDS: CARVEDILOL 6.25 MG TABLET PO SCH (16:49)
--- NOTE | 2018-04-30 17:59 | NUR ---
HEALTH PROMOTION EDUCATOR NOTES PER [employer] TECH, PACEMAKER LOOKS LIKE IT WOULD BE [facility]. [facility] CONTACTED, COMPANY PAGED LOCAL AREA REP PRABHA RICHARDS. AWAITING CALL BACK. PLACED URGENT REQUEST. Addendum: 04/30/18 at 1834 by JAMILAH RASMUSSEN RN [facility] NUMBER: [phone] PRABHA RICHARDS LOCAL REP
--- NOTE | 2018-04-30 19:07 | NUR ---
FELT CEMENTER CLOSING NOTES ENDORSED PT TO PM SHIFT FOR AJIT. PT IN BED, NO DISTRESS NOTED. NITRO GIVEN FOR CHEST PAIN. VS WNL. BED IN LOCKED/LOWEST POSITION. CALL LIGHT IN REACH.
[2018-04-30 20:00] VITALS: BP 118/74
--- NOTE | 2018-04-30 20:04 | NUR ---
WATER TREATMENT SPECIALIST NOTES RECEIVED PT ON BED. A/O X 4 ON ROOM AIR SATURATING WELL. NO RESPIRATORY DISTRESS NOTED. ON TELE MONITOR SR. IV ACCESS ON RIGHT HAND G20 PATENT AND INTACT. HEAD OF BED ELEVATED. SIDE RAILS UP. CALL LIGHT WITHIN REACH. BED ALARM ON. WILL CONTINUE TO MONITOR PT CLOSELY.
[2018-04-30] MEDS: ATORVASTATIN 10 MG TABLET PO SCH (21:11)
[2018-04-30] MEDS: TRAZODONE 50 MG TABLET PO SCH (21:11)
[2018-05-01] VITALS: BP 122/71
[2018-05-01 04:00] VITALS: BP 104/56
[2018-05-01] MEDS: ALBUTEROL HALF STRENGTH 1.25 MG/3 ML VIAL.NEB NEB SCH ×5 (04:12→20:22)
--- NOTE | 2018-05-01 07:20 | NUR ---
DEVELOPMENT EDITOR NOTES NO ACUTE CHANGES NOTED DURING THE SHIFT. PROVIDED COMFORT AND SAFETY. WILL ENDORSE TO THE AM NURSE FOR CONTINUITY OF CARE.
--- NOTE | 2018-05-01 07:30 | NUR ---
RN NOTES RECEIVED PT IN BED, ON HIGH BACK REST, RECEIVING BREATHING TREATMENT AT THIS TIME. A/OX4, ABLE TO RESPOND VERBALLY. ON RA. SAT 96%. NO SOB NOTED. NO COMPLAINTS OF PAIN AT THIS TIME. SR W/ BBB HR AT 59. R HAND IV G [address], INTACT AND PATENT ON FLUSHING. ENCOURAGE TO CALL FOR ASSISTANCE. CALL LIGHT PLACED WITHIN REACH. BED IN LOCKED/LOWEST POSITION. WILL CONT TO MONITOR.
[2018-05-01 08:00] VITALS: BP 109/67
[2018-05-01] MEDS: MULTIVIT W/MINERALS 1 TAB TABLET PO SCH (09:15)
[2018-05-01] MEDS: ASPIRIN EC 81 MG TABLET.DR PO SCH (09:15)
[2018-05-01] MEDS: LEVOTHYROXINE SODIUM 50 MCG TABLET PO SCH (09:15)
[2018-05-01] MEDS: LOSARTAN POTASSIUM 50 MG TABLET PO SCH (09:17)
[2018-05-01] MEDS: AMIODARONE HCL 200 MG TABLET PO SCH (09:17)
[2018-05-01] MEDS: SPIRONOLACTONE 25 MG TABLET PO SCH (09:17)
[2018-05-01] MEDS: CARVEDILOL 6.25 MG TABLET PO SCH ×2 (09:17→16:04)
[2018-05-01] MEDS: APIXABAN 5 MG TABLET PO SCH ×2 (09:17→21:49)
--- NOTE | 2018-05-01 14:00 | NUR ---
RN NOTES CALLED [facility] TO SCHEDULE FOR AICD CHECK, SPOKE TO TANESHA RICHARDS WHO HAVE PATCHED ME THROUGH TO [facility] WHO HAVE SCHEDULE THE CHECK WITH PRABHA RICHARDS (LOCAL TOE TRIMMER). HE HAVE ASK THE LOCATION AND CONTACT NUMBER OF THE PATIENT WHICH I INDICATED [facility] WITH THE FOLLOWING CALL BACK NUMBER [phone]/ PER [facility], WILL CALL US BACK. PATIENT INFORMED
[2018-05-01 16:00] VITALS: BP 94/49
--- NOTE | 2018-05-01 17:00 | NUR ---
RN NOTES DUE CARVEDILOL NOT GIVEN DUE TO BLOOD PRESSURE BELOW THE PARAMETER.
--- NOTE | 2018-05-01 19:20 | NUR ---
MS/RN NOTES RECEIVED PT. LYING IN BED. PT. IS AWAKE, ALERT AND ORIENTED X3. BREATHING EVEN AND UNLABORED ON ROOM AIR. NO SOB, RESPIRATORY DISTRESS OR COMPLAINTS OF PAIN NOTED AT THIS TIME. PT. WITH RIGHT HAND 20 GAUGE IV SALINE LOCK PRESENT, PATENT AND INTACT. SAFETY AND ASPIRATION PRECAUTIONS IMPLEMENTED AND IN PLACE. BED LOCKED AND IN LOWEST POSITION, SIDE RAILS UP X2, BED ALARM ON, CALL LIGHT WITHIN REACH, WILL CONTINUE TO MONITOR.
--- NOTE | 2018-05-01 19:31 | NUR ---
RN NOTES ENDORSED FOR CONTINUITY OF CARE. NO ACUTE CHANGES WITHIN THE SHIFT. ALL NURSING NEEDS ANTICIPATED AND ATTENDED. SAFETY MEASURES, ASPIRATION PRECAUTION IN PLACE AT ALL TIMES. CALL LIGHT WITHIN REACH
[2018-05-01 20:45] VITALS: BP 104/65
[2018-05-01] MEDS: TRAZODONE 50 MG TABLET PO SCH (21:47)
[2018-05-01] MEDS: ATORVASTATIN 10 MG TABLET PO SCH (21:47)
[2018-05-02] MEDS: ALBUTEROL HALF STRENGTH 1.25 MG/3 ML VIAL.NEB NEB SCH ×3 (00:23→07:53)
[2018-05-02 04:00] VITALS: BP 106/68
--- NOTE | 2018-05-02 06:20 | NUR ---
MS/RN NOTES PT. IS LYING IN BED RESTING. BREATHING EVEN AND UNLABORED ON ROOM AIR. NO SOB, RESPIRATORY DISTRESS OR COMPLAINTS OF PAIN NOTED AT THIS TIME. PT. WITH RIGHT HAND 20 GAUGE IV SALINE LOCK PRESENT, PATENT AND INTACT. SAFETY AND ASPIRATION PRECAUTIONS IMPLEMENTED AND IN PLACE. ALL PT. NEEDS MET. BED LOCKED AND IN LOWEST POSITION, SIDE RAILS UP X2, BED ALARM ON, CALL LIGHT WITHIN REACH, WILL ENDORSE TO DAYSHIFT NURSE FOR CONTINUITY OF CARE.
--- NOTE | 2018-05-02 07:30 | NUR ---
MS RN OPENING NOTE RECEIVED PT IN BED SLEEPING AND EASILY AROUSABLE. PT IS A/O X4, DENIES CHEST PAIN, SOB, N/V. BREATHING IS EVEN AND UNLABORED ON ROOM AIR. RIGHT HAND #20G IV IS SALINE LOCKED WITHOUT REDNESS OR SWELLING. ALL NEEDS ATTENDED TO. BED IS LOCKED AND IN LOWEST POSITION, SIDE RAILS UP X2, BED ALARM ON, CALL LIGHT AND POSSESSIONS WITHIN REACH.
[2018-05-02 08:00] VITALS: BP 91/52
[2018-05-02] MEDS: ASPIRIN EC 81 MG TABLET.DR PO SCH (08:36)
[2018-05-02] MEDS: LEVOTHYROXINE SODIUM 50 MCG TABLET PO SCH (08:37)
[2018-05-02] MEDS: MULTIVIT W/MINERALS 1 TAB TABLET PO SCH (08:37)
[2018-05-02] MEDS: LOSARTAN POTASSIUM 50 MG TABLET PO SCH (08:41)
[2018-05-02] MEDS: CARVEDILOL 6.25 MG TABLET PO SCH (08:41)
[2018-05-02 08:42] VITALS: BP 106/55
[2018-05-02] MEDS: SPIRONOLACTONE 25 MG TABLET PO SCH (08:42)
[2018-05-02] MEDS: AMIODARONE HCL 200 MG TABLET PO SCH (08:42)
[2018-05-02] MEDS: APIXABAN 5 MG TABLET PO SCH (08:43)
--- NOTE | 2018-05-02 11:16 | NUR ---
MS RN PT DISCHARGED PT DISCHARGED TO [facility] IN MEDICALLY STABLE CONDITION VIA AMBULANCE. PT IS A/O X3-4. DENIES CHEST PAIN, SOB, N/V. BREATHING IS EVEN AND UNLABORED ON ROOM AIR. VS WNL. NO ACUTE DISTRESS NOTED AT THIS TIME. PT HAD NO EPISODES OF CHEST PAIN FOR THE DURATION OF THE SHIFT. REPORT GIVEN TO FREDERIC AT FACILITY TO CONTINUITY OF CARE. DISCHARGE PAPERWORK AND EDUCATION PROVIDED PER PROTOCOL. INFORMED FREDERIC AND THE PT THAT INCLUDED IN D/C PAPERWORK IS A MEDICATION RECON LIST FROM DR. VALDEZ, A COPY OF THE AICD REPORT AND LABS, CONSULTS. INFORMED PT AND FREDERIC TO CALL 911 FOR SOB, CHEST PAIN, UNILATERAL CALF SWELLING, TEMPERATURE THAT DOES NOT GO DOWN WITH TYLENOL ADMINISTRATION OR REOCCURRENCE OF INITIAL CHIEF COMPLAINTS. INFORMED FREDERIC AND PT THAT PER DR. VALDEZ BATTERY OF AICD NEEDS TO BED CHECKED EVERY 6 MONTHS. FREDERIC AND PT VERBALIZED UNDERSTANDING. DISCHARGE PAPERWORK AND EDUCATION PROVIDED PER PROTOCOL. ALL BELONGINGS ACCOUNTED FOR AND BELONGINGS ACCOUNTED FOR AND BELONG LIST SIGNED AND PLACED IN CHART. REPORT GIVEN TO AMBULANCE STAFF FOR TRANSFER OF CARE.
== END 2018-05-02 11:14 | DRG 314 ==
LOC: ER 17:06 → TELE1 19:57 → MEDSG1 05-01 10:20
PROVIDERS: ADMIT Internal Medicine; ATTEND Internal Medicine
DX: T82.119A Breakdown (mechanical) of unspecified cardiac electronic device, initial encounter (principal); I50.23 Acute on chronic systolic (congestive) heart failure; I13.0 Hypertensive heart and chronic kidney disease with heart failure and stage 1 through stage 4 chronic kidney disease, or unspecified chronic kidney disease; Z95.810 Presence of automatic (implantable) cardiac defibrillator; F02.80 Dementia in other diseases classified elsewhere, unspecified severity, without behavioral disturbance, psychotic disturbance, mood disturbance, and anxiety; G30.9 Alzheimer's disease, unspecified; Y71.2 Prosthetic and other implants, materials and accessory cardiovascular devices associated with adverse incidents; Z86.73 Personal history of transient ischemic attack (TIA), and cerebral infarction without residual deficits; E78.5 Hyperlipidemia, unspecified; E03.9 Hypothyroidism, unspecified; D69.6 Thrombocytopenia, unspecified; I25.10 Atherosclerotic heart disease of native coronary artery without angina pectoris; I25.5 Ischemic cardiomyopathy; Z95.3 Presence of xenogenic heart valve; Z95.1 Presence of aortocoronary bypass graft; Z88.0 Allergy status to penicillin; Z87.891 Personal history of nicotine dependence; Z79.899 Other long term (current) drug therapy; I25.2 Old myocardial infarction; N18.9 Chronic kidney disease, unspecified; Z79.82 Long term (current) use of aspirin; Z79.01 Long term (current) use of anticoagulants; Z98.890 Other specified postprocedural states; G43.909 Migraine, unspecified, not intractable, without status migrainosus; K74.60 Unspecified cirrhosis of liver; I48.0 Paroxysmal atrial fibrillation; Z86.79 Personal history of other diseases of the circulatory system; I50.9 Heart failure, unspecified; M54.30 Sciatica, unspecified side
CPT/HCPCS: 36415; 71045-TC; 80048-TC; 80076-TC; 82550-TC; 82962-TC; 83735-TC; 83880; 84484-TC; 85025-TC; 85610-TC; 85730-TC; 87081-TC; 93307-TC; G0378; J1940

== ENCOUNTER 2018-07-26 11:33 | Emergency (ER) | payer MEDICARE, MEDICAID ==
[~2018-07-26] VITALS: Ht 165.1 cm; Wt 70.3 kg
[~2018-07-26 11:33] MED LIST changes: +ASPI-1152 PO; -ASPI-1169 PO; +LEVO50TA8 PO; +LOSA50TA39 PO; +MULT-447 PO; -PANT40TA4 PO; -QUET100T PO; +RIZA10TA27 PO; -VALS160T2 PO
--- NOTE | 2018-07-26 11:50 | NUR ---
JUDAH ALVA FROM ASSISTED LIVING, PT C/O LT ELBOW PAIN RADIATING TO LT SHLDR & SWELLING & BRUISING NOTED. DENIES FALL/TRAUMA. TO ER BED 10, HOOKED TO MONITOR, CHANGED TO GOWN, PROVIDED W WARM BLANKET, AWAITING MD HODGES
--- NOTE | 2018-07-26 12:50 | NUR ---
KAIAKO KURA TUARUA AT BEDSIDE
[2018-07-26] MEDS ORDERED: ACETAMINOPHEN 325 MG TABLET ONE (12:53)
[2018-07-26] MEDS ORDERED: SACU1TAB7 PO (12:59)
[2018-07-26] MEDS ORDERED: ACETAMINOPHEN 325 MG TABLET PO ONE (13:00)
--- NOTE | 2018-07-26 15:55 | NUR ---
ASIF TO [facility] 1701 TRIP#[id number]
--- NOTE | 2018-07-26 17:02 | NUR ---
Patient discharged to AMBULNZ UNIT 117 in stable condition. Written and verbal after care instructions given. Patient verbalizes understanding of instruction. PT BEING BROUGHT BACK TO [facility].
[2018-07-26 17:08] VITALS: BP 118/61
== END 2018-07-26 17:09 | disposition home or self-care (01) ==
LOC: ER 11:35
DX: S50.02XA Contusion of left elbow, initial encounter (principal); I42.9 Cardiomyopathy, unspecified; I48.91 Unspecified atrial fibrillation; E78.5 Hyperlipidemia, unspecified; I12.9 Hypertensive chronic kidney disease with stage 1 through stage 4 chronic kidney disease, or unspecified chronic kidney disease; N18.9 Chronic kidney disease, unspecified; M54.30 Sciatica, unspecified side; E03.9 Hypothyroidism, unspecified; F17.200 Nicotine dependence, unspecified, uncomplicated; Z95.0 Presence of cardiac pacemaker; Z90.89 Acquired absence of other organs; Z88.0 Allergy status to penicillin; Z88.2 Allergy status to sulfonamides; Z88.1 Allergy status to other antibiotic agents; Z88.5 Allergy status to narcotic agent; Z91.018 Allergy to other foods; Z88.6 Allergy status to analgesic agent; Z91.09 Other allergy status, other than to drugs and biological substances; Z79.82 Long term (current) use of aspirin; Z79.899 Other long term (current) drug therapy; X58.XXXA Exposure to other specified factors, initial encounter; Y93.89 Activity, other specified; Y92.89 Other specified places as the place of occurrence of the external cause; Y99.8 Other external cause status
CPT/HCPCS: 73060-TC

== ENCOUNTER 2019-01-06 16:24 | Inpatient (IN) | payer MEDICARE, MEDICAID ==
[~2019-01-06] VITALS: Ht 165.1 cm; Wt 65.8 kg
[~2019-01-06 16:24] MED LIST changes: -MULT-447 PO; +SACU1TAB7 PO
--- NOTE | 2019-01-06 16:40 | NUR ---
BIB EMT 73 YEAR OLD FEMALE C/O WEAKNESS AND "BRONCHITIS" X 2 WEEKS. ALERT AND ORIENTED X3 BREATHING EVEN UNLABORED BUT SATURATING AT 91%, 2LPM VIA NC OF O2 STARTED. SKIN INTACT. WAITING TO BE SEEN BY
--- NOTE | 2019-01-06 16:45 | NUR ---
TWISTER HAND AT BEDSIDE
[2019-01-06] MEDS ORDERED: DICL100G16 TP (16:55)
[2019-01-06] MEDS ORDERED: DONE10TA44 PO (16:55)
[2019-01-06] MEDS ORDERED: TRAM50TA2 PO (16:55)
[2019-01-06] MEDS ORDERED: SACU1TAB4 PO (16:55)
[2019-01-06 17:15] LABS: BASOPHILS % (AUTO) 0.4 % (0.0-2.0); EOSINOPHILS % (AUTO) 2.4 % (0.0-6.0); HEMATOCRIT 41 % (33-45); HEMOGLOBIN 13.5 g/dL (11.5-14.8); LYMPHOCYTES # (AUTO) 1.2 /CMM (0.8-4.8); LYMPHOCYTES % (AUTO) 13.1 % (20.0-44.0); MEAN CORPUSCULAR HGB CONC 33 g/dl (31.0-36.0); MEAN CORPUSCULAR VOLUME 98 fL (82-100); MONOCYTES # (AUTO) 1.2 /CMM (0.1-1.30); MONOCYTES % (AUTO) 13.6 % (2.0-12.0); NEUTROPHILS # (AUTO) 6.3 /CMM (1.8-8.9); NEUTROPHILS % (AUTO) 70.5 % (43.0-81.0); PLATELET COUNT (AUTO) 87 /CMM (150-450); RED BLOOD CELL COUNT(AUTO) 4.16 MIL/uL (4.0-5.2)
[2019-01-06 17:27] LABS: CALCIUM, SERUM 9.1 mg/dL (8.5-10.1); CREATININE 1.2 mg/dL (0.6-1.3)
[2019-01-06] MEDS ORDERED: ALBUTEROL FS 2.5 MG/3 ML VIAL.NEB NEB ONE (17:30)
[2019-01-06] MEDS ORDERED: IPRATROPIUM NEB FS 0.5 MG/2.5 ML AMPUL.NEB NEB ONE (17:30)
[2019-01-06] MEDS ORDERED: FUROSEMIDE 20 MG/2 ML VIAL IV ONE (17:30)
[2019-01-06] MEDS ORDERED: predniSONE 20 MG TABLET PO ONE (17:30)
[2019-01-06] MEDS ORDERED: predniSONE 20 MG TABLET ONE (17:32)
[2019-01-06] MEDS ORDERED: FUROSEMIDE 20 MG/2 ML VIAL ONE (17:32)
[2019-01-06] MEDS ORDERED: IPRATROPIUM NEB FS 0.5 MG/2.5 ML AMPUL.NEB ONE (17:35)
[2019-01-06] MEDS ORDERED: ALBUTEROL FS 2.5 MG/3 ML VIAL.NEB ONE (17:35)
--- NOTE | 2019-01-06 17:36 | NUR ---
RECIEVED BED 114-1
[2019-01-06 17:40] LABS: ALBUMIN 3.4 g/dL (3.4-5.0); BILIRUBIN,DIRECT 0.1 mg/dL (0.0-0.2); BILIRUBIN,TOTAL 0.3 mg/dL (0.2-1.0); TOTAL PROTEIN, SERUM 7.2 g/dL (6.4-8.2)
--- NOTE | 2019-01-06 18:02 | NUR ---
REPORT GIVEN TO POPEYE TO CONTINUE AJIT
--- NOTE | 2019-01-06 18:24 | NUR ---
PAGED DR VALDEZ. CONECTED HIS ON-CALL FOR CONSULT WITH DR BULL
--- NOTE | 2019-01-06 18:30 | NUR ---
FINISHER BRUSHTANK TRUCK ENGINE MECHANIC NOTES REPORT GIVEN BY RUBEN IBRAHIM IN ER.RECEIVED PT FROM ER TO ROOM 114-VIA GURNEY AND FROM DOORWAY TO BED BY AMBULATION WITH ASSISTANCE.ALERT/ORIENTED X3.ON 2LPM O2 VIA NC CONTINUOUSLY,SATURATING WELL.NO SOB AND ACUTE DISTRESS NOTED.ON TELE HR IS NSR.IC LINE IS ON LEFT HAND G22,SL.SITE IS CLEAN,DRY AND INTACT.NO INFILTRATION NOTED.SAFETY IS MAINTAINED AT ALL TIMES,BED IS IN LOW POSITION AND LOCKED.WILL CONTINUE TO MONITOR THE PT CLOSELY. Addendum: 01/06/19 at 1922 by JESSICA MILLER RN VITAL SIGNS CHECKED.BP-136/76.P-96,TEMP-98.2,R-16/.
--- NOTE | 2019-01-06 18:35 | NUR ---
PATIENT TRANSPORTED TO [facility] INTO ROOM 114-1
--- NOTE | 2019-01-06 18:40 | NUR ---
AIR CONDITIONING UNIT ASSEMBLER NOTES SHE URINATED IN THE RESTROOM VIA AMBULATION WITH ONE PERSON ASSISTANCE.PT TOLERATED WELL.
--- NOTE | 2019-01-06 19:01 | NUR ---
SURVEYOR'S ASSISTANT CLOSING NOTES PT IS LYING ON BED.ON 2LPM NC CONTINUOUSLY.NO SOB AND ACUTE DISTRESS NOTED.IV LINE IS IN PLACE.WILL ENDORSE TO SOIL BIOLOGY TEACHER RN FOR AJIT.
[2019-01-06 20:00] VITALS: BP_SYST 125; BP_SYST 127; BP_DIAS 85
[2019-01-06 20:20] LABS: EOSINOPHILS % (MANUAL) 3 % (0-4); LYMPHOCYTES % (MANUAL) 12 % (16-48); MONOCYTES % (MANUAL) 11 % (0-11.0); NEUTROPHILS % (MANUAL) 74 (42-76)
--- NOTE | 2019-01-06 21:30 | NUR ---
RN NOTE CONTACTED MUSEUM OR ZOO DIRECTOR FOR DR. VALDEZ TO RECEIVE ORDERS. ORDERS GIVEN: DX: ACUTE CHF, DIET: CARDIAC, MEDS: LASIX 20MG IV PUSH DAILY, K 10MEQ DAILY, BREATHING TREATMENTS:ALBUTEROL 2.5MG Q4H WHILE AWAKE, ATROVENT 0.5MG Q4H WHILE AWAKE, AND Q2H PRN. LABS ORDERED: CBC, BMP, LIPID PANEL, HA1C, TROPONIN, CPK. DR ALSO ORDERED TO CONTINUE ALL HOME MEDS. READ BACK PERFORMED.
[2019-01-06] MEDS ORDERED: Potassium Chloride 10 MEQ in IV NS 0.9% 1,000 ML IV SCH (22:00)
[2019-01-06] MEDS ORDERED: IPRATROPIUM NEB FS 0.5 MG/2.5 ML AMPUL.NEB NEB PRN (22:30)
[2019-01-06] MEDS: ALBUTEROL FS 2.5 MG/0.5 ML VIAL.NEB NEB SCH (22:58)
[2019-01-07] VITALS: BP 109/49
[2019-01-07] MEDS ORDERED: NITROGLYCERIN 0.4 MG/TAB BOTTLE SL PRN ×2 (03:30→13:30)
[2019-01-07 04:00] VITALS: BP 114/60
[2019-01-07 06:28] LABS: HEMATOCRIT 44 % (33-45); HEMOGLOBIN 14.4 g/dL (11.5-14.8); LYMPHOCYTES # (AUTO) 0.8 /CMM (0.8-4.8); LYMPHOCYTES % (AUTO) 8.5 % (20.0-44.0); MEAN CORPUSCULAR HGB CONC 33 g/dl (31.0-36.0); MEAN CORPUSCULAR VOLUME 97 fL (82-100); MONOCYTES # (AUTO) 0.4 /CMM (0.1-1.30); MONOCYTES % (AUTO) 4.1 % (2.0-12.0); NEUTROPHILS # (AUTO) 8.6 /CMM (1.8-8.9); NEUTROPHILS % (AUTO) 87.4 % (43.0-81.0); PLATELET COUNT (AUTO) 103 /CMM (150-450); RED BLOOD CELL COUNT(AUTO) 4.48 MIL/uL (4.0-5.2); WHITE BLOOD COUNT (AUTO) 9.9 K/uL (4.3-11.0)
[2019-01-07 06:43] LABS: CHOLESTEROL 135 mg/dL (<200); CREATINE KINASE, TOTAL 114 U/L (26-192); HDL CHOLESTEROL 61 mg/dL (40-60); LDL 68 mg/dL (0-99); TRIGLYCERIDES 54 mg/dL (30-150)
[2019-01-07 06:49] LABS: CALCIUM, SERUM 9.5 mg/dL (8.5-10.1); CARBON DIOXIDE 23 mmol/L (21-32); CHLORIDE 102 mmol/L (98-107); CREATININE 1.4 mg/dL (0.6-1.3); GLUCOSE 127 mg/dL (74-106); POTASSIUM 3.9 mmol/L (3.5-5.1); SODIUM SERUM 138 mmol/L (136-145); UREA NITROGEN, BLOOD 37 mg/dL (7-18)
[2019-01-07] MEDS: IPRATROPIUM NEB FS 0.5 MG/2.5 ML AMPUL.NEB NEB SCH ×4 (07:51→19:30)
[2019-01-07] MEDS: ALBUTEROL FS 2.5 MG/0.5 ML VIAL.NEB NEB SCH ×4 (07:51→19:30)
[2019-01-07 08:00] VITALS: BP 135/73
--- NOTE | 2019-01-07 08:06 | NUR ---
RN OPENING NOTES PT COMING OUT OF ROOM AND STATES SHE WANTS TO GO HOME. REMOVED IV. STATES SHE IS HAVING NO PAIN OR SOB AT PRESENT TIME. PT IS AMBULATORY. PT IS A&OX2. WILL CONTINUE TO MONITOR. PT REMOVED TELE MONITOR AD DOES NOT WANT IT BACK ON.
[2019-01-07] MEDS: FUROSEMIDE 20 MG/2 ML VIAL IV SCH (08:50)
[2019-01-07] MEDS: POTASSIUM CHLORIDE 20 MEQ TAB.PRT.SR PO SCH (08:56)
[2019-01-07] MEDS: CARVEDILOL 6.25 MG TABLET PO SCH ×2 (08:56→21:00)
--- NOTE | 2019-01-07 09:49 | NUR ---
PT REFUSING TO PUT TELE BOX BACK ON STATES SHE DOES NOT WANT IT. PT IS CLAIMING STAFF STOLE HER CIGARETTES WELL.
--- NOTE | 2019-01-07 10:47 | NUR ---
PT IS AGREEABLE TO ALLOWING THE TELE BOX TO BE PLACED HOWEVER STILL REFUSING IV AND TO ALLOW A ECHO BE DONE. PT WAS EDUCATED AND QUESTIONS WERE ANSWERED HOWEVER PT STILL REFUSED.
[2019-01-07 12:00] VITALS: BP 106/58
--- NOTE | 2019-01-07 12:01 | NUR ---
PT IS REFUSING ECHO
[2019-01-07] MEDS ORDERED: RIZATRIPTAN BENZOATE 5 MG PO PRN (13:30)
[2019-01-07] MEDS: NICOTINE PATCH (21MG) 21 MG PATCH.TD24 TD SCH (14:11)
[2019-01-07 16:00] VITALS: BP 118/66
[2019-01-07] MEDS ORDERED: CARVEDILOL 6.25 MG TABLET PO SCH (17:00)
[2019-01-07] MEDS: TRAMADOL HCL 50 MG TABLET PO SCH ×2 (17:00→18:04)
--- NOTE | 2019-01-07 18:29 | NUR ---
PT REFUSING TO ALLOW FOR IV PLACEMENT STATES SHE WANTS TO SLEEP RIGHT NOW AND SHE WILL ALLOW FOR IT LATER.
--- NOTE | 2019-01-07 18:46 | NUR ---
RN CLOSING NOTES PT LAYING IN BED SLEEPING. PT REFUSED FOR IV INSERTION. PT STATES SHE JUST WANTS TO SLEEP. PT HR IS 60 ON TELE MONITOR. PT IS AMBULATORY BUT IS A&OX2. BED IS LOCKED AND IN LOWEST POSITION WITH CALL LIGHT IN REACH WILL ENDORSE AJIT TO SILK OPENER NURSE.
[2019-01-07 20:00] VITALS: BP 105/61
--- NOTE | 2019-01-07 20:00 | NUR ---
TELE-1/CHIEF DESIGN ENGINEER PT REFUSING PHYSICAL ASSESSMENT
--- NOTE | 2019-01-07 20:36 | NUR ---
TELE-1/VETERINARY ANATOMIST PT BEING NONCOMPLIANT WITH HOSPITAL POLICIES SHE WANTS TO ROAM THE HOSPITAL BY HERSELF I EXPLAINED TO HER THAT WE ARE RESPONSIBLE FOR HER SAFETY. SHE STATES THAT SHE DOESN'T CARE. PT IS REFUSING IV PLACEMENT AT THIS TIME. RISKS AND BENEFITS EXPLAINED. SECURITY AT BEDSIDE EXPLAINING HOSPITAL POLICIES TO PT. SHE CONTINUES TO BE DEFIANT. WILL CONTINUE TO MONITOR.
[2019-01-07] MEDS: ATORVASTATIN 40 MG TABLET PO SCH (21:20)
[2019-01-07] MEDS: APIXABAN 5 MG TABLET PO SCH (21:20)
[2019-01-07] MEDS: TRAZODONE 50 MG TABLET PO SCH (21:20)
[2019-01-07] MEDS ORDERED: TRAZODONE 50 MG TABLET PO SCH (22:00)
[2019-01-07] MEDS ORDERED: ATORVASTATIN 10 MG TABLET PO SCH (22:00)
[2019-01-08] VITALS: BP 142/82
[2019-01-08 04:00] VITALS: BP 117/79
--- NOTE | 2019-01-08 07:00 | NUR ---
PROJECT COORDINATOR NOTES OPENING PATIENT IS A/O 3 AWAKE SITTING IN BED WITH NO SOB AND DISCOMFORT. PATIENT HAS NO IV LINE AVAILABLE , ACCORDING TO AUDIOVISUAL LIBRARIAN NURSE SHE REFUSED TO HAVE IV LINE. SHE IS ON ROOM AIR. BED LOCKED AT THE LOWEST POSITION CALL LIGHT WITHIN REACH. INFORMED PT ABOUT THE HOME MEDICATION WHICH ARE NOT AVAILABLE AT THE HOSPITAL AND SHE REPLIES NO ONE CAN BRING THEM FOR HER.
--- NOTE | 2019-01-08 07:37 | NUR ---
CREDIT COMPLIANCE OFFICER NOTES (MEDICATION) RECEIVED A CALL FROM PHARMACY REGARDING NOT AVAILABLE MEDICATION FOR PATIENT.MAXALT, ENTRESO AND DICLOFENAC GEL ARE NOT AVAILABLE AT PHARMACY. ASKED PATIENT IF SOMEONE CAN BRING THE MEDS FROM HOME AND SHE REPLIED NO.WILL INFORM THE PCP REGARDING THIS MATTER.
[2019-01-08 08:00] VITALS: BP 143/78
[2019-01-08] MEDS: IPRATROPIUM NEB FS 0.5 MG/2.5 ML AMPUL.NEB NEB SCH ×4 (08:08→20:06)
[2019-01-08] MEDS: ALBUTEROL FS 2.5 MG/0.5 ML VIAL.NEB NEB SCH ×4 (08:08→20:07)
[2019-01-08] MEDS ORDERED: DICLOFENAC TOPICAL 100 GM GEL..GM. TP SCH (09:00)
[2019-01-08] MEDS ORDERED: Medication Not On Formulary EA (Sacubitril/Valsartan (Entresto 97 mg-103 mg Tablet) 1 EA PO SCH (09:00)
[2019-01-08] MEDS: NICOTINE PATCH (21MG) 21 MG PATCH.TD24 TD SCH (09:00)
[2019-01-08] MEDS: TRAMADOL HCL 50 MG TABLET PO SCH ×3 (09:00→17:00)
[2019-01-08] MEDS: FUROSEMIDE 20 MG/2 ML VIAL IV SCH ×2 (09:00→14:09)
[2019-01-08] MEDS: AMIODARONE HCL 200 MG TABLET PO SCH (09:00)
[2019-01-08] MEDS: LEVOTHYROXINE SODIUM 50 MCG TABLET PO SCH (09:32)
[2019-01-08] MEDS: SPIRONOLACTONE 25 MG TABLET PO SCH (09:37)
[2019-01-08] MEDS: DONEPEZIL 5 MG TABLET PO SCH (09:38)
[2019-01-08] MEDS: CARVEDILOL 6.25 MG TABLET PO SCH ×2 (09:41→21:28)
[2019-01-08] MEDS: POTASSIUM CHLORIDE 20 MEQ TAB.PRT.SR PO SCH (09:42)
[2019-01-08] MEDS: APIXABAN 5 MG TABLET PO SCH ×2 (09:44→21:25)
--- NOTE | 2019-01-08 10:49 | NUR ---
SLURRY BLENDER NOTES RECHECKED BP HR59 PB 98/55 HELD AMIODARONE , LASIX 20MG. PT REFUSED TRAMADOL. NO PAIN AT THIS MOMENT. PT REFUSED NICOTINE PATCH. ALL MEDICATIONS RETURNED TO PYXIS.
--- NOTE | 2019-01-08 14:09 | NUR ---
CLINICAL PHYSICIAN ASSISTANT NOTES INFORMED DR VALDEZ ABOUT THE LOW BP AND NOT ADMINISTRATION OF FUROSEMIDE. DR ALEX AWARE AND HE WANTED THE ADMINISTRATION OF 20 MG FUROSEMIDE. PT BP 112/70 HR 88 FRUSEMIDE IV ADMINISTRATED.
--- NOTE | 2019-01-08 14:09 | NUR ---
THREE DIMENSIONAL ART INSTRUCTOR NOTES PER DR BLANCHARD FRUSEMIDE IS GIVEN AT 1409 BP IS 122/70 HR 88.
[2019-01-08 16:00] VITALS: BP 103/58
[2019-01-08] MEDS: VALSARTAN 80 MG TABLET PO SCH (17:39)
--- NOTE | 2019-01-08 19:10 | NUR ---
RN OPENING NOTES: PATIENT IN BED, AWAKE, AND VERBALLY RESPONSIVE. A/OX2-3. AMBULATORY WITH WALKER ASSIST. NO SOB. ON RA, TOLERATING WELL. NO C/O PAIN AT THIS TIME. ON TRAINING FACILITATOR SHOWING AV PACING. SAFETY PRECAUTIONS IMPLEMENTED. BED IN LOWEST POSITION. CALL LIGHT PLACED WITHIN REACH. WILL CONT. TO MONITOR.
--- NOTE | 2019-01-08 19:30 | NUR ---
HEAD TEACHER NOTES PATIENT IS RESTING IN BED , NO SOB, DISCOMFORT OR PAIN REPORTED AT THIS TIME. BED IS LOCKED AT THE LOWEST POSITION , CALL LIGHT WITHIN REACH.PATIENT NEED REORIENTATION. ON ROOM AIR. ENDORSED TO ACCOUNT FINANCIAL MANAGER NURSE FOR AJIT.
[2019-01-08 20:00] VITALS: BP 121/74
[2019-01-08] MEDS ORDERED: ATORVASTATIN 10 MG TABLET ONE (21:11)
--- NOTE | 2019-01-08 21:30 | NUR ---
RN NOTE: ATORVASTATIN 10 MG 1 TAB WAS TAKEN FROM [employer]. OVERRIDE DONE BY CHARGE NURSE DANA. MEDICATION ADMINISTERED TO PATIENT.
[2019-01-08] MEDS: TRAZODONE 50 MG TABLET PO SCH (21:33)
[2019-01-08] MEDS: ATORVASTATIN 40 MG TABLET PO SCH (22:00)
[2019-01-09] VITALS (7 sets, daily range): BP systolic 113–139; BP diastolic 65–78
--- NOTE | 2019-01-09 06:45 | NUR ---
RN CLOSING NOTES: PATIENT IN BED, AWAKE, AND VERBALLY RESPONSIVE. NO SOB. NO C/O PAIN AT THIS TIME. ALL NEEDS ATTENDED. SAFETY PRECAUTIONS IMPLEMENTED. BED LOCKED AND IN LOWEST POSITION. CHARGE NURSE INSERTED A NEW IV LINE ON (R) HAND G22. INTACT, PATENT, AND FLUSHING WELL. WILL ENDORSE TO AM SHIFT NURSE FOR CONTINUITY OF CARE.
[2019-01-09] MEDS: IPRATROPIUM NEB FS 0.5 MG/2.5 ML AMPUL.NEB NEB SCH ×4 (07:28→19:30)
[2019-01-09] MEDS: ALBUTEROL FS 2.5 MG/0.5 ML VIAL.NEB NEB SCH ×4 (07:28→19:30)
[2019-01-09] MEDS: FUROSEMIDE 20 MG/2 ML VIAL IV SCH (08:28)
[2019-01-09] MEDS: LEVOTHYROXINE SODIUM 50 MCG TABLET PO SCH (08:28)
[2019-01-09] MEDS: POTASSIUM CHLORIDE 20 MEQ TAB.PRT.SR PO SCH (08:29)
[2019-01-09] MEDS: VALSARTAN 80 MG TABLET PO SCH ×2 (08:29→17:00)
[2019-01-09] MEDS: SPIRONOLACTONE 25 MG TABLET PO SCH (08:29)
[2019-01-09] MEDS: NICOTINE PATCH (21MG) 21 MG PATCH.TD24 TD SCH (08:29)
[2019-01-09] MEDS: DONEPEZIL 5 MG TABLET PO SCH (08:29)
[2019-01-09] MEDS: TRAMADOL HCL 50 MG TABLET PO SCH ×3 (10:00→17:00)
[2019-01-09] MEDS: CARVEDILOL 6.25 MG TABLET PO SCH ×2 (10:00→21:07)
[2019-01-09] MEDS: AMIODARONE HCL 200 MG TABLET PO SCH (10:00)
[2019-01-09] MEDS: APIXABAN 5 MG TABLET PO SCH ×2 (10:00→21:07)
--- NOTE | 2019-01-09 11:55 | NUR ---
RN NOTE: PATIENT STRONGLY REFUSED TO GET A BLOOD DRAW. EXPLAINED TO HER THE RISKS AND BENEFITS OF THE BLOOD DRAW, BUT PATIENT WAS STRONGLY REFUSED IT. PATIENT HAS BEEN WANTING TO BE DISCHARGE PER PROMISE BY DR. VALDEZ YESTERDAY. WILL INFORM DR. VALDEZ ABOUT THIS.
--- NOTE | 2019-01-09 12:17 | NUR ---
RN NOTE: CALLED AND SPOKE WITH RAYO, OFFICE STAFF FROM DR. VALDEZ'S OFFICE AND MADE HER AWARE REGARDING THE CONCERN OF THE PATIENT THAT SHE WAS PROMISED TO BE DISCHARGE TODAY. AWAITING FOR MD'S RESPONSE.
--- NOTE | 2019-01-09 12:18 | NUR ---
RN NOTE: RECEIVED A RESPONSE FROM DR. VALDEZ AND ACCORDING TO HIM, HE WANTED THE PATIENT TO AGREE FOR THE BLOOD DRAW PRIOR TO GETTING DISCHARGE. MD WAS INFORMED THAT PATIENT STRONGLY REFUSED WITH THE BLOOD DRAW, AND WANTED TO SPEAK WITH HIM.
--- NOTE | 2019-01-09 19:35 | NUR ---
RN OPENING NOTES RECEIVED REPORT FROM DAYSHIFT RN. FOUND Pt AWAKE, RESTING IN BED, WATCHING TV. NO S/S OF ACUTE DISTRESS OR SOB NOTED. Pt IS A/OX2-3, VERBAL, ABLE TO MAKE NEEDS KNOWN. PER REPORT Pt HAS BEEN NONCOMPLIANT WITH CARE. IV ACCESS ON R HAND #[id number], SL. SAFETY MEASURES IN PLACE. BED LOW, LOCKED, HOB ELEVATED, SIDE RAILS UP, CALL LIGHT AND BEDSIDE TABLE WITHIN REACH. WILL CONTINUE TO MONITOR Pt's CONDITION AND SAFETY THROUGHOUT THE NIGHT.
--- NOTE | 2019-01-09 19:46 | NUR ---
RN NOTE: BEDSIDE REPORT WAS GIVEN TO PM SHIFT NURSE FOR CONTINUITY OF CARE. PATIENT ON STABLE CONDITION AND REFUSED PM MEDS TODAY.
--- NOTE | 2019-01-09 21:00 | NUR ---
RN NOTE SPOKE WITH Pt IN REGARDS TO HER POSSIBLE DISCHARGE TOMORROW. TOLD Pt THAT WE NEED ONE LAST RECENT LAB RESULT BEFORE THEY CAN FINALLY CLEAR HER FOR DISCHARGE. TOLD Pt THAT WE WILL TAKE HER LAB DRAW IN THE MORNING, AND Pt SEEMED TO UNDERSTAND AND SEEMED COMPLIANT FOR NOW. WILL SEE IN THE MORNING IF SHE WILL BE COMPLIANT.
[2019-01-09] MEDS: TRAZODONE 50 MG TABLET PO SCH (21:06)
[2019-01-09] MEDS ORDERED: ATORVASTATIN 10 MG TABLET PO SCH (22:00)
[2019-01-10 06:52] LABS: B-TYPE NATRIURETIC PEPTIDE 1279 PG/ML (0-125); CALCIUM, SERUM 9.3 mg/dL (8.5-10.1); CARBON DIOXIDE 27 mmol/L (21-32); CHLORIDE 102 mmol/L (98-107); CREATININE 1.6 mg/dL (0.6-1.3); GLUCOSE 102 mg/dL (74-106); POTASSIUM 3.9 mmol/L (3.5-5.1); SODIUM SERUM 137 mmol/L (136-145); UREA NITROGEN, BLOOD 42 mg/dL (7-18)
--- NOTE | 2019-01-10 07:32 | NUR ---
RN CLOSING NOTES NO SIGNIFICANT CHANGES IN Pt's CONDITION. Pt IS RESTING COMFORTABLY IN BED, WITH EVEN AND UNLABORED RESPIRATIONS. NO S/S OF ACUTE DISTRESS OR SOB NOTED DURING THE NIGHT. ALL NEEDS MET AND ATTENDED TO. SAFETY MEASURES IN PLACE. WILL ENDORSE TO DAYSHIFT RN FOR Pt's AJIT.
[2019-01-10] MEDS: ALBUTEROL FS 2.5 MG/0.5 ML VIAL.NEB NEB SCH ×3 (07:54→15:05)
[2019-01-10] MEDS: IPRATROPIUM NEB FS 0.5 MG/2.5 ML AMPUL.NEB NEB SCH ×3 (07:54→15:05)
[2019-01-10] MEDS: NICOTINE PATCH (21MG) 21 MG PATCH.TD24 TD SCH (08:13)
[2019-01-10] MEDS: LEVOTHYROXINE SODIUM 50 MCG TABLET PO SCH (08:13)
[2019-01-10] MEDS: TRAMADOL HCL 50 MG TABLET PO SCH ×2 (08:13→12:29)
[2019-01-10] MEDS: DONEPEZIL 5 MG TABLET PO SCH (08:13)
[2019-01-10] MEDS: CARVEDILOL 6.25 MG TABLET PO SCH (08:13)
[2019-01-10] MEDS: FUROSEMIDE 20 MG/2 ML VIAL IV SCH (08:14)
[2019-01-10] MEDS: VALSARTAN 80 MG TABLET PO SCH (08:14)
[2019-01-10] MEDS: SPIRONOLACTONE 25 MG TABLET PO SCH (08:14)
[2019-01-10] MEDS: POTASSIUM CHLORIDE 20 MEQ TAB.PRT.SR PO SCH (08:14)
[2019-01-10 09:00] VITALS: BP 106/67
[2019-01-10] MEDS: AMIODARONE HCL 200 MG TABLET PO SCH (10:03)
[2019-01-10] MEDS: APIXABAN 5 MG TABLET PO SCH (10:06)
[2019-01-10 10:22] VITALS: BP 106/67
--- NOTE | 2019-01-10 15:09 | NUR ---
piv removed- dc instructions and report provided for transportation - escorted off unit by transpeleanor
== END 2019-01-10 15:15 | DRG 291 ==
LOC: ER 16:27 → TELE1 17:50 → MEDSG1 01-09 11:03
PROVIDERS: ADMIT Internal Medicine; ATTEND Internal Medicine
DX: I11.0 Hypertensive heart disease with heart failure (principal); N17.0 Acute kidney failure with tubular necrosis; G93.40 Encephalopathy, unspecified; I69.351 Hemiplegia and hemiparesis following cerebral infarction affecting right dominant side; I50.23 Acute on chronic systolic (congestive) heart failure; I25.5 Ischemic cardiomyopathy; I48.0 Paroxysmal atrial fibrillation; D69.6 Thrombocytopenia, unspecified; K74.60 Unspecified cirrhosis of liver; E03.9 Hypothyroidism, unspecified; E78.5 Hyperlipidemia, unspecified; F02.80 Dementia in other diseases classified elsewhere, unspecified severity, without behavioral disturbance, psychotic disturbance, mood disturbance, and anxiety; G30.9 Alzheimer's disease, unspecified; I25.10 Atherosclerotic heart disease of native coronary artery without angina pectoris; I25.2 Old myocardial infarction; K72.90 Hepatic failure, unspecified without coma; Z95.3 Presence of xenogenic heart valve; Z87.891 Personal history of nicotine dependence; Z79.899 Other long term (current) drug therapy; Z79.890 Hormone replacement therapy; Z79.01 Long term (current) use of anticoagulants; F39 Unspecified mood [affective] disorder; E56.9 Vitamin deficiency, unspecified; Z91.040 Latex allergy status; Z88.5 Allergy status to narcotic agent; Z88.0 Allergy status to penicillin; Z88.2 Allergy status to sulfonamides; Z88.8 Allergy status to other drugs, medicaments and biological substances; Z91.018 Allergy to other foods; Z79.82 Long term (current) use of aspirin; I05.0 Rheumatic mitral stenosis; G43.909 Migraine, unspecified, not intractable, without status migrainosus; Z95.810 Presence of automatic (implantable) cardiac defibrillator; N18.3 Chronic kidney disease, stage 3 (moderate)
CPT/HCPCS: 36415; 71045-TC; 76705-TC; 80048-TC; 80061-TC; 80076-TC; 82550-TC; 83880; 84443-TC; 84484-TC; 85025-TC; 85730-TC; 87081-TC; 93307-TC; 94799-TC; A6403; G0378; J1940

== ENCOUNTER 2019-06-13 15:33 | Emergency (ER) | payer MEDICARE, OTHER ==
[~2019-06-13] VITALS: Ht 170.2 cm; Wt 65.8 kg
[~2019-06-13 15:33] MED LIST changes: -ASPI-1152 PO; -ATOR10TA PO; +DONE10TA44 PO; -LOSA50TA39 PO; -SACU1TAB7 PO; -SPIR25TA PO; +TRAM50TA2 PO
--- NOTE | 2019-06-13 15:45 | NUR ---
pt bib PA frm [facility] c/o R foot pain s/p GLF 2 weeks ago. noted swelling to affected area. pt is aaox3. stable vitals. will continue to monitor. awaiting md duran.
--- NOTE | 2019-06-13 15:58 | NUR ---
dr dunlap at bedside for eval.
[2019-06-13] MEDS ORDERED: ACETAMINOPHEN 650 MG/20.3 ML UDC PO ONE (18:00)
--- NOTE | 2019-06-13 18:10 | NUR ---
GIO LEE ORDERED PER DR. CRESPO
[2019-06-13] MEDS ORDERED: ACETAMINOPHEN 325 MG TABLET ONE (18:27)
--- NOTE | 2019-06-13 19:01 | NUR ---
CALLED [phone], TRIP#[id number]
--- NOTE | 2019-06-13 19:27 | NUR ---
eport to night sift nurse cam for lisy.
--- NOTE | 2019-06-13 19:52 | NUR ---
Patient discharged to home in stable condition. Written and verbal after care instructions given. Patient verbalizes understanding of instruction. PT picked up and transfered back to facility.
[2019-06-13 19:53] VITALS: BP 132/62
== END 2019-06-13 19:54 | disposition home or self-care (01) ==
LOC: ER 15:38
DX: M25.571 Pain in right ankle and joints of right foot (principal); M79.671 Pain in right foot; I48.91 Unspecified atrial fibrillation; I25.10 Atherosclerotic heart disease of native coronary artery without angina pectoris; E03.9 Hypothyroidism, unspecified; G89.29 Other chronic pain; F03.90 Unspecified dementia, unspecified severity, without behavioral disturbance, psychotic disturbance, mood disturbance, and anxiety; I12.9 Hypertensive chronic kidney disease with stage 1 through stage 4 chronic kidney disease, or unspecified chronic kidney disease; N18.9 Chronic kidney disease, unspecified; F17.200 Nicotine dependence, unspecified, uncomplicated; Z98.890 Other specified postprocedural states; Z90.89 Acquired absence of other organs; Z95.0 Presence of cardiac pacemaker; Z88.8 Allergy status to other drugs, medicaments and biological substances; Z88.0 Allergy status to penicillin; Z88.2 Allergy status to sulfonamides; Z88.1 Allergy status to other antibiotic agents; Z88.5 Allergy status to narcotic agent; Z88.6 Allergy status to analgesic agent; Z91.018 Allergy to other foods; Z79.899 Other long term (current) drug therapy; W05.0XXA Fall from non-moving wheelchair, initial encounter; Y93.89 Activity, other specified; Y92.89 Other specified places as the place of occurrence of the external cause; Y99.8 Other external cause status
CPT/HCPCS: 73610-TC; 73630-TC

== ENCOUNTER 2019-11-17 12:57 | Inpatient (IN) | payer MEDICARE, OTHER ==
[~2019-11-17] VITALS: Ht 154.9 cm; Wt 58.1 kg
[2019-11-17] VITALS (25 sets, daily range): BP systolic 65–151; BP diastolic 22–75
--- NOTE | 2019-11-17 13:39 | NUR ---
[facility] From [facility] "NOT eating as much xcouple days now feeling weak". PT AAOX2, ALSO C/O DIZZINESS . RR EVEN & UNLABORED. DENIES CP, SOB, N/V AT THIS TIME. NO FACIAL DROOP, TONGUE MIDLINE, NO VISUAL CHANGES, NO ARM/LEG DRIFTING AT THIS TIME & ABLE TO SWALLOW JUICE W/O DIFFICULTY. PT SEEN & EVAL'D BY DR. LOW. PLACED ON PROGRAM CONTROL ANALYST, PACING & WILL CONT TO MONITOR.
[2019-11-17 13:44] LABS: BASOPHILS % (AUTO) 0.2 % (0.0-2.0); EOSINOPHILS % (AUTO) 0.6 % (0.0-6.0); HEMATOCRIT 48 % (33-45); HEMOGLOBIN 15.2 g/dL (11.5-14.8); LYMPHOCYTES # (AUTO) 1.1 /CMM (0.8-4.8); LYMPHOCYTES % (AUTO) 7.2 % (20.0-44.0); MEAN CORPUSCULAR HGB CONC 32 g/dl (31.0-36.0); MEAN CORPUSCULAR VOLUME 99 fL (82-100); MONOCYTES # (AUTO) 1.4 /CMM (0.1-1.30); MONOCYTES % (AUTO) 8.9 % (2.0-12.0); NEUTROPHILS # (AUTO) 12.9 /CMM (1.8-8.9); NEUTROPHILS % (AUTO) 83.1 % (43.0-81.0); PLATELET COUNT (AUTO) 96 /CMM (150-450); RED BLOOD CELL COUNT(AUTO) 4.85 MIL/uL (4.0-5.2); WHITE BLOOD COUNT (AUTO) 15.5 K/uL (4.3-11.0)
[2019-11-17] MEDS ORDERED: SPIR25TA6 PO (14:17)
[2019-11-17] MEDS ORDERED: MENT71OI2 TP (14:17)
[2019-11-17] MEDS ORDERED: CYCL5TAB PO (14:17)
[2019-11-17] MEDS ORDERED: SACU1TAB4 PO (14:17)
[2019-11-17] MEDS ORDERED: CARV3.122 PO (14:17)
[2019-11-17] MEDS ORDERED: ATOR10TA PO (14:17)
[2019-11-17] MEDS ORDERED: BUTA1CAP43 PO (14:17)
[2019-11-17] MEDS ORDERED: IV D5 LR 1,000 ML IV ONE (14:30)
[2019-11-17 14:42] LABS: LYMPHOCYTES % (MANUAL) 4 % (16-48); MONOCYTES % (MANUAL) 2 % (0-11.0); NEUTROPHILS % (MANUAL) 94 (42-76)
[2019-11-17 15:12] LABS: CALCIUM, SERUM 9.2 mg/dL (8.5-10.1); CARBON DIOXIDE 12 mmol/L (21-32); CHLORIDE 106 mmol/L (98-107); CREATININE 4.2 mg/dL (0.6-1.3); GLUCOSE 114 mg/dL (74-106); SODIUM SERUM 133 mmol/L (136-145)
[2019-11-17 15:14] LABS: POTASSIUM 6.3 mmol/L (3.5-5.1); UREA NITROGEN, BLOOD 102 mg/dL (7-18)
[2019-11-17 15:22] LABS: ALANINE AMINOTRANSFERASE 50 U/L (12-78); ALBUMIN 2.3 g/dL (3.4-5.0); ALKALINE PHOSPHATASE 102 U/L (46-116); ASPARTATE AMINOTRANSFERASE 77 U/L (15-37); BILIRUBIN,DIRECT 0.2 mg/dL (0.0-0.2); BILIRUBIN,TOTAL 0.4 mg/dL (0.2-1.0); TOTAL PROTEIN, SERUM 7.9 g/dL (6.4-8.2)
--- NOTE | 2019-11-17 15:43 | NUR ---
RT @ BS FOR BREATHING TX. PT DANNIELLE WELL.
[2019-11-17] MEDS ORDERED: FUROSEMIDE 40 MG/4 ML VIAL ONE (15:46)
[2019-11-17] MEDS ORDERED: DEXTROSE 50%-WATER 50 ML DISP.SYRIN ONE (15:46)
[2019-11-17] MEDS ORDERED: INSULIN REGULAR, HUMAN 100 UNIT/ML 10 ML VIAL ONE (15:46)
[2019-11-17] MEDS ORDERED: ALBUTEROL FS 2.5 MG/3 ML VIAL.NEB ONE (15:56)
[2019-11-17 16:00] LABS: APPEARANCE,URINE Slightly Cloudy (CLEAR); BILIRUBIN,URINE SMALL (NEGATIVE); BLOOD, URINE Small Ery/uL (NEGATIVE); COLOR,URINE Yellow (YELLOW); KETONES,URINE Negative (NEGATIVE); LEUKOCYTE ESTERASE ,URINE Negative (NEGATIVE); NITRITE, URINE Negative (NEGATIVE); PH,URINE 5.5 (5.0-8.0); PROTEIN,URINE 30 mg/dl (NEGATIVE); UGLUCOSE Negative (NEGATIVE); UROBILINOGEN,URINE 0.2 EU/dL (0.2)
[2019-11-17] MEDS ORDERED: IV NS 0.9% 1,000 ML IV ONE (16:00)
[2019-11-17] MEDS ORDERED: ALBUTEROL FS 2.5 MG/3 ML VIAL.NEB NEB ONE (16:00)
[2019-11-17] MEDS ORDERED: INSULIN REGULAR, HUMAN 100 UNIT/ML 10 ML VIAL IV ONE (16:00)
[2019-11-17] MEDS ORDERED: DEXTROSE 50%-WATER 50 ML DISP.SYRIN IVP ONE (16:00)
[2019-11-17] MEDS ORDERED: FUROSEMIDE 40 MG/4 ML VIAL IV ONE (16:00)
--- NOTE | 2019-11-17 16:00 | NUR ---
MEDICATED PER ERMD ORDER, PT DANNIELLE WELL.
[2019-11-17 16:28] LABS: WBC,URINE 0-2 /HPF (0-3)
[2019-11-17 16:29] LABS: BACTERIA,URINE Few /HPF (None Seen); SQUAMOUS EPITHELIAL CELL,UR Moderate /HPF (None Seen); URINE AMORPHOUS URATE Moderate /HPF (None Seen)
--- NOTE | 2019-11-17 16:31 | NUR ---
PT TO CT VIA CONSUELO
[2019-11-17] MEDS ORDERED: ASPIRIN 81 MG TAB.CHEW PO ONE (17:00)
[2019-11-17] MEDS ORDERED: LEVOFLOXACIN 750 MG /D5W 150ML PIGGYBACK IV ONE (17:30)
[2019-11-17] MEDS ORDERED: VANCOMYCIN 1 GM in IV D5W 250 ML IV ONE (17:30)
--- NOTE | 2019-11-17 17:48 | NUR ---
SUSIE DE LA TORRE DR.'S ASSISTANCE
[2019-11-17] MEDS ORDERED: LEVOFLOXACIN 750 MG /D5W 150ML 150 ML IV ONE (18:04)
[2019-11-17] MEDS ORDERED: ASPIRIN 81 MG TAB.CHEW ONE (18:04)
[2019-11-17] MEDS ORDERED: VANCOMYCIN 1 GM VIAL ONE (18:04)
--- NOTE | 2019-11-17 18:34 | NUR ---
REPORT GIVEN TO RUBEN SCHMITT FOR AJIT
--- NOTE | 2019-11-17 18:50 | NUR ---
RN NOTES RECEIVED PT FROM ER IN ROOM 254 , A/Ox1, RESPIRATION EVEN AND UNLABORED, O2 SAT WNL, SBP IN LOW 90'S . WILL ENDORSE TO STRUCTURAL STEEL SHOP SUPERVISOR NURSE FOR CONTINUITY OF CARE.
--- NOTE | 2019-11-17 19:00 | NUR ---
RN NOTES DR VALDEZ PAGECiro REGARDING ADMITTING ORDER AND LOW SBP .
--- NOTE | 2019-11-17 19:15 | NUR ---
RN NOTES ADMITTING ORDER RECEIVED FROM SAURABH FENG NP .
--- NOTE | 2019-11-17 19:20 | NUR ---
ICU/FORMING DEPARTMENT END FINDER WOUND CONSULT AND [facility] BED ORDER DUE TO THE FACT PT HAS SKIN ISSUES.
--- NOTE | 2019-11-17 19:45 | NUR ---
ICU/EXPANSION JOINT FINISHER ADMISSION ASSESSMENT DONE AND SKIN ISSUES WERE ADDRESSED AND DOCUMENTED ON FLOW SHEET.
--- NOTE | 2019-11-17 19:55 | NUR ---
ICU/CHANGE MANAGEMENT COORDINATOR LEVO WAS STARTED DUE TO LOW BP, WILL MONITOR THIS PT AND HER BP. CHARGE NURSE TO TITRATE LEVO NEEDED.
[2019-11-17] MEDS: IV D5/0.45 NACL 1,000 ML IV PRN (20:00)
[2019-11-17] MEDS: NOREPINEPHRINE 8 MG in IV NS 0.9% 242 ML IV PRN (20:03)
--- NOTE | 2019-11-17 20:10 | NUR ---
ICU/DEHYDROGENATION CONVERTER OPERATOR CALLED WATER TEAM LEADER ÁLVARO FENG, ABOUT CODE STATUS, ROCEPHIN ALLERGY TO PCN. SHE SAID D/C IV ANTIBIOTIC. AND FULL CODE STATUS.
--- NOTE | 2019-11-17 20:30 | NUR ---
ICU/LEGAL BILLING COORDINATOR PICC LINE ORDER WAS OBTAINED FOR ÁLVARO FENG DUE TO LEVO BEING TITRATED. PT APPEARS TO BE UNSTABLE. CONSENT WAS OBTAINED FOR THIS, THE NURSING OFFICE CALLED.
[2019-11-17] MEDS ORDERED: SODIUM POLYSTYRENE SULFONATE 15 G/60 ML BOTTLE PO ONE (22:00)
--- NOTE | 2019-11-17 22:20 | NUR ---
ICU/HEAD CHARGER BLOOD CULTURES WER JUST DONE, THIS WAS SUPPOSED TO BE DONE IN ER HOWEVER THIS WASN'T DONE.
--- NOTE | 2019-11-17 22:45 | NUR ---
ICU/PRODUCT MANAGEMENT CONSULTANT CHARGE NURSE CALLED JOURNEYMAN PAINTER ÁLVARO JOSEPH ABOUT POTASSIUM WAS 6.3, SAID TO GIVEN KAYEXALATE PO FOR THIS. ALL ORDERS WERE CARRIED OUT.
[2019-11-17] MEDS ORDERED: SODIUM POLYSTYRENE SULFONATE 15 G/60 ML BOTTLE ONE (22:59)
--- NOTE | 2019-11-17 23:30 | NUR ---
ICU/STEEL PICKLER PT'S BLOOD PRESSURE IS STABLE AT 120'S TO 130'S NOTIFIED CHARGE NURSE WHO THEN TURNED IT OFF. WILL CONTINUE TO MONITOR THIS PT AND HER BP.
[2019-11-18] VITALS (86 sets, daily range): BP systolic 77–175; BP diastolic 39–82
--- NOTE | 2019-11-18 | NUR ---
ICU/POCKET SETTER PICC LINE NURSE HER TO PLACE LINE ON PT, HOWEVER UNSUCCESSFUL AT PLACING THE LINE BUT WAS ABLE TO PLACE A MIDLINE. CHARGE NURSE AWARE.
--- NOTE | 2019-11-18 00:10 | NUR ---
ICU/INDUSTRIAL RELATIONS WORKER CHARGE NURSE MADE AWARE THE THE 1800 BLOOD DRAW OF LACTIC ACID WAS JUST RECENTLY DONE, AND THAT IT WAS ORDERED AT 1800 IN ER HOWEVER WASN'T DONE UNTIL PT WAS ON FLOOR.
--- NOTE | 2019-11-18 00:20 | NUR ---
ICU/HOOD FITTER LACTIC ACID WAS CALLED IN A CRITICAL, CALLED CRANE OPERATOR CAB SAURABH FENG ABOUT THIS. GAVE AN ORDER FOR 1 LITER BOLUS. CHARGE NURSE MADE AWARE OF THIS. ALSO TEMP IS 96.6 RECTALLY GOT ORDER FOR RAMIREZ CORDERO TO CLOSELY MONITOR TEMP.
[2019-11-18] MEDS ORDERED: IV NS 0.9% 1,000 ML IV PRN (02:00)
--- NOTE | 2019-11-18 02:00 | NUR ---
ICU/SERVICE CLERK REDRAW OF LACTIC ACID WAS ORDERED, HOWEVER THE 1 LITER OF IVF IS STILL GOING. BLOOD DRAW FOR LACTIC ACID WAS PLACED ON HOLD TILL IVF FINISHED THEN IT WILL BE COLLECTED.
--- NOTE | 2019-11-18 03:01 | NUR ---
ICU/RESERVATIONS AGENT PT VOIDED X1 A LARGE AMOUNT THIS WAS THE FIRST TIME SINCE PT ARRIVED ON THE UNIT. PT WAS PROVIDED SUYAPA CARE CLEAN THEN REPOSITIONED FOR COMFORT AND CARE. I LITER BOLUS IS COMPLETE.
--- NOTE | 2019-11-18 03:30 | NUR ---
ICU/SUGAR HOUSE SUPERVISOR LEVO WAS RESTARTED DUE TO LOW BLOOD PRESSURE IN THE 80'S. WILL CONTINUE TO MONITOR THIS PT.
[2019-11-18 04:59] LABS: BASOPHILS % (AUTO) 0.2 % (0.0-2.0); EOSINOPHILS % (AUTO) 1.4 % (0.0-6.0); HEMATOCRIT 41 % (33-45); HEMOGLOBIN 13.3 g/dL (11.5-14.8); LYMPHOCYTES # (AUTO) 0.9 /CMM (0.8-4.8); LYMPHOCYTES % (AUTO) 5.6 % (20.0-44.0); MEAN CORPUSCULAR HGB CONC 32 g/dl (31.0-36.0); MEAN CORPUSCULAR VOLUME 99 fL (82-100); MONOCYTES # (AUTO) 1.6 /CMM (0.1-1.30); MONOCYTES % (AUTO) 9.5 % (2.0-12.0); NEUTROPHILS # (AUTO) 14.1 /CMM (1.8-8.9); NEUTROPHILS % (AUTO) 83.3 % (43.0-81.0); PLATELET COUNT (AUTO) 96 /CMM (150-450); RED BLOOD CELL COUNT(AUTO) 4.18 MIL/uL (4.0-5.2); WHITE BLOOD COUNT (AUTO) 16.9 K/uL (4.3-11.0)
--- NOTE | 2019-11-18 05:10 | NUR ---
ICU/BALLET COMPANY MEMBER AM LABS WERE DONE.
[2019-11-18 05:13] LABS: ALANINE AMINOTRANSFERASE 43 U/L (12-78); ALBUMIN 2.3 g/dL (3.4-5.0); ALKALINE PHOSPHATASE 87 U/L (46-116); ASPARTATE AMINOTRANSFERASE 59 U/L (15-37); BILIRUBIN,TOTAL 0.4 mg/dL (0.2-1.0); CALCIUM, SERUM 7.7 mg/dL (8.5-10.1); CARBON DIOXIDE 19 mmol/L (21-32); CHLORIDE 108 mmol/L (98-107); CREATININE 2.7 mg/dL (0.6-1.3); GLUCOSE 121 mg/dL (74-106); POTASSIUM 5.6 mmol/L (3.5-5.1); SODIUM SERUM 138 mmol/L (136-145); TOTAL PROTEIN, SERUM 6.8 g/dL (6.4-8.2); UREA NITROGEN, BLOOD 76 mg/dL (7-18)
[2019-11-18] MEDS: IV D5/0.45 NACL 1,000 ML IV PRN ×2 (06:14→16:40)
--- NOTE | 2019-11-18 08:15 | NUR ---
received pt from police shift commander, s/p septic shock, alert, follows commands, able to move all extremities, V pacing, on 2L 02 sat well, no edema, NPO, able to swallow, receiving levo at 0.1mcg, v/s stable, no pain, pt turned and repositioned.
[2019-11-18] MEDS ORDERED: NITROGLYCERIN 0.4 MG/TAB BOTTLE SL PRN (12:30)
[2019-11-18] MEDS ORDERED: TRAMADOL HCL 50 MG TABLET PO PRN (12:30)
[2019-11-18] MEDS: NOREPINEPHRINE 8 MG in IV NS 0.9% 242 ML IV PRN (16:12)
--- NOTE | 2019-11-18 16:57 | NUR ---
pt is resting in the bed, alert, follows commands, confused at times, SR, on 2L 02 sat well, 1BM, receiving levo at 0.03mcg, v/s stable, no pain, pt cleaned, changed and repositioned.
[2019-11-18] MEDS: CARVEDILOL 3.125 MG TABLET PO SCH (17:00)
[2019-11-18] MEDS ORDERED: VANCOMYCIN HCL 0.75 GM in IV D5W 250 ML IV SCH (17:00)
[2019-11-18] MEDS: APIXABAN 2.5 MG TABLET PO SCH (17:07)
[2019-11-18] MEDS: ATORVASTATIN 10 MG TABLET PO SCH (21:51)
[2019-11-19] VITALS (91 sets, daily range): BP systolic 74–168; BP diastolic 29–98
[2019-11-19] MEDS: IV D5/0.45 NACL 1,000 ML IV PRN ×3 (03:53→23:48)
[2019-11-19 04:54] LABS: CALCIUM, SERUM 8.2 mg/dL (8.5-10.1); CARBON DIOXIDE 21 mmol/L (21-32); CHLORIDE 106 mmol/L (98-107); CREATININE 1.6 mg/dL (0.6-1.3); GLUCOSE 124 mg/dL (74-106); POTASSIUM 4.5 mmol/L (3.5-5.1); SODIUM SERUM 137 mmol/L (136-145); UREA NITROGEN, BLOOD 49 mg/dL (7-18)
[2019-11-19] MEDS: LEVOTHYROXINE SODIUM 50 MCG TABLET PO SCH ×2 (07:30→08:17)
--- NOTE | 2019-11-19 07:31 | NUR ---
RN OPENING NOTE: RECEIVED PATIENT IN BED THIS MORNING. PATIENT IS AAOX2, RESPONDS APPROPRIATELY BUT CONFUSED. SATING WELL ON 2L/MIN VIA NC. PATIENT IS VPACING IN THE 70S ON BEDSIDE MONITOR. NO SIGNS OF ACUTE DISTRESS NOTED AT THIS TIME. PATIENT HAS DIAPER. NPO AT THIS TIME. DEVEN MIDLINE, C/D/I, FLUSHING WELL, NO SIGNS OF COMPLICATIONS NOTED RUNNING D5 1/2 @ 100CC/HR AND LEVO AT 0.02. SAFETY MEASURES IMPLEMENTED, BED IN LOWEST POSITION, LOCKED, SIDE RAILS UP, CALL LIGHT WITHIN REACH. WILL CONTINUE TO MONITOR PATIENT FOR CHANGES.
--- NOTE | 2019-11-19 08:13 | NUR ---
PER DR VALDEZ, HOLD 0900 COREG, ADMINISTER ELIQUIS AND UPGRADE DIET TO PUREE WITH THIN LIQUIDS.
[2019-11-19] MEDS: CARVEDILOL 3.125 MG TABLET PO SCH ×2 (08:15→16:39)
[2019-11-19] MEDS: APIXABAN 2.5 MG TABLET PO SCH ×2 (08:19→16:42)
[2019-11-19] MEDS: NOREPINEPHRINE 8 MG in IV NS 0.9% 242 ML IV PRN (16:42)
--- NOTE | 2019-11-19 18:53 | NUR ---
RN CLOSING NOTE: PATIENT REMAINS IN BED. NO SIGNS OF ACUTE DISTRESS NOTED AT THIS TIME. V PACE, SR IN THE 70S NOTED ON BEDSIDE MONITOR. SAFETY MEASURES IMPLEMENTED, BED IN LOWEST POSITION, LOCKED, SIDE RAILS UP, CALL LIGHT WITHIN REACH, ENDORSED TO RUBEN ZUÑIGA FOR CONTINUITY OF CARE.
[2019-11-19] MEDS ORDERED: VANCOMYCIN HCL 0.75 GM in IV D5W 250 ML IV SCH (20:00)
[2019-11-19] MEDS: ATORVASTATIN 10 MG TABLET PO SCH (21:45)
[2019-11-20] VITALS (44 sets, daily range): BP systolic 93–135; BP diastolic 44–96
[2019-11-20 04:39] LABS: CALCIUM, SERUM 8.1 mg/dL (8.5-10.1); CREATININE 1.3 mg/dL (0.6-1.3); POTASSIUM 4.2 mmol/L (3.5-5.1)
--- NOTE | 2019-11-20 06:41 | NUR ---
UNEVENTFUL NIGHT PATIENT DOES NOT COMPLAIN OF ANY PAIN. PATIENT IN BED WITH NOT SIGNS OF DISTRESS. WILL ENDORSE TO MORNING SHIFT FOR AJIT.
--- NOTE | 2019-11-20 07:08 | NUR ---
ICU/RN ENDORSED TO MORNING SHIFT NURSE. PATIENT IN BED WITH NO DISTRESS.
--- NOTE | 2019-11-20 07:10 | NUR ---
RN INITIAL NOTES RECEIVED PT AWAKE, A/0. ON 02 VIA NC AT 2LPM. NO RESPIRATORY DISTRESS NOTED. NO SOB NOTED. DENIES ANY PAIN. DEVEN MIDLINE IN PLACE. LEVO INFUSING AT 0.02MCG/KG/MIN. WILL CLOSELY MONITOR BP. IVF INFUSING. BLE ELEVATED. PT COMFORTABLE. CALL LIGHT WITHIN REACH. WILL CLOSELY MONITOR
--- NOTE | 2019-11-20 07:36 | NUR ---
WOUND CARE CONSULT: REVIEWED CHART, NURSING DOCUMENTATION AND PHOTOS WHICH INDICATE DEEP TISSUE INJURIES TO SACRUM EXENDING TO BILATERAL BUTTOCKS (INTACT) AND DEEP TISSUE INJURY IN EVOLUTION TO LEFT LOWER BUTTOCK WELL DISCOLORATION TO LOWER EXTREMITY SKIN, ALL PRESENT ON ADMISSION. RECOMMENDATIONS MADE FOR SKIN PROTECTION AND WOUND CARE. DISCUSSED WITH NURSING STAFF. PT [facility] IN AGREEMENT WITH PLAN OF CARE.
[2019-11-20] MEDS: LEVOTHYROXINE SODIUM 50 MCG TABLET PO SCH (07:40)
[2019-11-20] MEDS ORDERED: Z GUARD REMEDY 2 OZ OINT TP PRN (08:00)
[2019-11-20] MEDS: CARVEDILOL 3.125 MG TABLET PO SCH ×2 (08:13→16:41)
[2019-11-20] MEDS: APIXABAN 2.5 MG TABLET PO SCH ×2 (08:13→16:48)
[2019-11-20] MEDS: IV D5/0.45 NACL 1,000 ML IV PRN (09:56)
[2019-11-20] MEDS: Z GUARD REMEDY 2 OZ OINT TP SCH (09:56)
--- NOTE | 2019-11-20 13:30 | NUR ---
RN NOTES DR VALDEZ UPDATED ON PT'S CONDITION, LAB VALUES AND IMAGING STUDIES. AWARE OF PINK TINGED URINE. NO ORDER MADE. WILL CONTINUE TO MONITOR
--- NOTE | 2019-11-20 18:26 | NUR ---
RN CLOSING NOTES PT REMAINS A/OX2. ON ROOM AIR. NO RESPIRATORY DISTRESS NOTED. HOB ELEVATED. DENIES ANY PAIN. LEVOPHED OFF. KEPT CLEAN AND DRY. TX ORDERED. REPOSITIONED Q2. BLE ELEVATED. KEPT COMFORTABLE. WILL ENDORSE FOR CONTINUITY OF CARE.
--- NOTE | 2019-11-20 19:40 | NUR ---
CRYSTAL FINISHER OPENING NOTE, RECEIVED PATIENT IN BED. AWAKE AND ALERT, PATIENT IS A/OX2 BUT CONFUSED, OBEYS COMMANDS, RESPONDS APPROPRIATELY. ON RA SATURATION 100% , NO SOB OR ACUTE DISTRESS NOTED AT THIS TIME. PATIENT IS V.PACING IN THE 70S ON BEDSIDE MONITOR. DEVEN MIDLINE, TKO. FLUSHING WELL, NO S/S OF INFILTRATION. SAFETY MEASURES IMPLEMENTED, BED IN LOW/LOCKED POSITION, SIDE RAILS UP, CALL LIGHT WITHIN REACH. WILL CONTINUE TO MONITOR PATIENT CLOSELY.
[2019-11-20] MEDS: ATORVASTATIN 10 MG TABLET PO SCH (22:10)
[2019-11-21] VITALS (22 sets, daily range): BP systolic 37–142; BP diastolic 16–88
[2019-11-21 04:14] LABS: BASOPHILS % (AUTO) 0.1 % (0.0-2.0); EOSINOPHILS % (AUTO) 2.2 % (0.0-6.0); HEMATOCRIT 41 % (33-45); HEMOGLOBIN 13.1 g/dL (11.5-14.8); LYMPHOCYTES # (AUTO) 1.3 /CMM (0.8-4.8); LYMPHOCYTES % (AUTO) 12.7 % (20.0-44.0); MEAN CORPUSCULAR HGB CONC 32 g/dl (31.0-36.0); MEAN CORPUSCULAR VOLUME 98 fL (82-100); MONOCYTES # (AUTO) 1.1 /CMM (0.1-1.30); MONOCYTES % (AUTO) 10.7 % (2.0-12.0); NEUTROPHILS # (AUTO) 7.6 /CMM (1.8-8.9); NEUTROPHILS % (AUTO) 74.3 % (43.0-81.0); PLATELET COUNT (AUTO) 52 /CMM (150-450); RED BLOOD CELL COUNT(AUTO) 4.17 MIL/uL (4.0-5.2); WHITE BLOOD COUNT (AUTO) 10.2 K/uL (4.3-11.0)
[2019-11-21 04:28] LABS: CALCIUM, SERUM 8.5 mg/dL (8.5-10.1); CARBON DIOXIDE 23 mmol/L (21-32); CHLORIDE 106 mmol/L (98-107); CREATININE 1.1 mg/dL (0.6-1.3); GLUCOSE 103 mg/dL (74-106); POTASSIUM 4.3 mmol/L (3.5-5.1); SODIUM SERUM 139 mmol/L (136-145); UREA NITROGEN, BLOOD 24 mg/dL (7-18)
[2019-11-21 04:47] LABS: EOSINOPHILS % (MANUAL) 2 % (0-4); LYMPHOCYTES % (MANUAL) 8 % (16-48); MONOCYTES % (MANUAL) 6 % (0-11.0); NEUTROPHILS % (MANUAL) 84 (42-76)
--- NOTE | 2019-11-21 07:11 | NUR ---
MEAT LOINER CLOSING NOTE, PATIENT IN BED. AWAKE AND ALERT, PATIENT IS A/OX2 BUT CONFUSED, OBEYS COMMANDS BUT A LITTLE AGITATED AFTER 0400 AM, APPLIED NEW BILATERAL SOFT RESTRAIN AT 0600AM DUR TO PULLING IV, ON RA SATURATION 100% , NO SOB OR ACUTE DISTRESS NOTED AT THIS TIME. PATIENT IS V PACING IN THE 70S ON BEDSIDE MONITOR. DEVEN MIDLINE, TKO. FLUSHING WELL, NO S/S OF INFILTRATION. ALL CARE HAS BEEN TAKEN DURING BOAT CREW DECK HAND. SAFETY MEASURES IMPLEMENTED, BED IN LOW/LOCKED POSITION, SIDE RAILS UP X2, CALL LIGHT WITHIN REACH. ENDORSED THE PATIENT TO AM RN FOR AJIT
--- NOTE | 2019-11-21 07:15 | NUR ---
RN INITIAL NOTES RECEIVED PT AWAKE, A/0. ON ROOM AIR. NO RESPIRATORY DISTRESS NOTED. NO SOB NOTED. DENIES ANY PAIN. DEVEN MIDLINE IN PLACE. BLE ELEVATED. PT COMFORTABLE. CALL LIGHT WITHIN REACH. WILL CLOSELY MONITOR
[2019-11-21] MEDS: LEVOTHYROXINE SODIUM 50 MCG TABLET PO SCH (07:47)
[2019-11-21] MEDS ORDERED: APIXABAN 2.5 MG TABLET PO SCH (09:00)
[2019-11-21] MEDS: AMIODARONE HCL 200 MG TABLET PO SCH (09:22)
[2019-11-21] MEDS: Z GUARD REMEDY 2 OZ OINT TP SCH (09:23)
[2019-11-21] MEDS: CARVEDILOL 3.125 MG TABLET PO SCH ×2 (09:23→16:18)
[2019-11-21] MEDS: APIXABAN 2.5 MG TABLET PO SCH (17:19)
--- NOTE | 2019-11-21 18:50 | NUR ---
RN NOTES PT TRANSFERRED TO ROOM 104. PT A/O. ON ROOM AIR. DENIES ANY PAIN. NO SOB NOTED. PT IN STABLE CONDITION. BEDSIDE REPORT GIVEN TO CRISTELA MIRANDA. TOOK OVER PT'S CARE.
--- NOTE | 2019-11-21 19:15 | NUR ---
Received pt at 1855 from ICU via bed, alert and oriented x 2. Denies any pain or discomfort. Connected to tele, V pacing 70bpm. Bilat wrist restraints on because pt was reaching down to the perianal area at times. Gave report to Sandra MIRANDA for AJIT.
--- NOTE | 2019-11-21 19:40 | NUR ---
RN OPENING NOTE RECEIVED PATIENT IN BED RESTING ALERT ORIENTED X2 VERBALLY RESPONSIVE NO SOB NOT ACUTE DISTRESS NOTED,ON TELE MONITORING FULL CODE,ON ROOM AIR 98% IV SITE IS ON RIGHT UPPER ARM MIDLINE INTACT PATENT INCONTINENT TO BOWEL/BLADDER, SAID RAIL X3UP,IMPLEMENT SAFETY MEASURE, BED IN LOW POSITION AND LOCKED,CALL LIGHT WITHIN REACH,CONTINUE TO MONITOR,
[2019-11-21] MEDS: ATORVASTATIN 10 MG TABLET PO SCH (21:41)
--- NOTE | 2019-11-21 22:00 | NUR ---
RN NOTE O2:92% ON ROOM AIR APPLIED 2/MIN OXYGEN VIA NASAL CANNULA,CONTINUE TO MONITOR.
[2019-11-22] VITALS: BP 126/86
[2019-11-22 04:00] VITALS: BP 134/90
--- NOTE | 2019-11-22 07:12 | NUR ---
RN CLOSING NOTE PATIENT REMAINS ON ALERT ORIENTED X2 ON TELE MONITORING,FULL CODE,ON 2L/MIN OXYGEN VIA NASAL CANNULA,96% NO SOB NOT ACUTE DISTRESS NOTED,IV SITE IS ON RIGHT UPPER ARM MID LINE INTACT PATENT,KEPT CLEAN AND DRY ALL THE TIME,ALL DUE MEDS GIVEN MD ORDERED,KEPT CALL LIGHT WITHIN REACH,ALL NEEDS MET,ENDORSE NEXT COMING SHIFT FOR CONTINUATION OF CARE.
[2019-11-22 08:00] VITALS: BP 128/78
[2019-11-22] MEDS: LEVOTHYROXINE SODIUM 50 MCG TABLET PO SCH (08:26)
[2019-11-22] MEDS: AMIODARONE HCL 200 MG TABLET PO SCH (08:30)
[2019-11-22] MEDS: CARVEDILOL 3.125 MG TABLET PO SCH (08:30)
[2019-11-22] MEDS: APIXABAN 2.5 MG TABLET PO SCH (08:34)
--- NOTE | 2019-11-22 08:44 | NUR ---
RN OPENING NOTES: RECEIVED PT IN BED AWAKE A/OX2, CONFUSED AT TIMES, COOPERATIVE. PT ON NC 2L TOLERATING WELL. NO SIGNS OF ANY RESPIRATORY DISTRESS, DIFFICULTY BREATHING, SOB, AND NO COMPLAINS OF ANY PAIN. IV LINE INTACT, FLUSHED WELL. ALL SAFETY AND COMFORT MEASURES MAINTAINED, CALL LIGHT WITHIN REACH WILL CONTINUE TO MONITOR.
[2019-11-22 09:02] LABS: CALCIUM, SERUM 8.5 mg/dL (8.5-10.1); CREATININE 1.1 mg/dL (0.6-1.3)
[2019-11-22] MEDS: Z GUARD REMEDY 2 OZ OINT TP SCH (09:10)
[2019-11-22 11:28] LABS: BASOPHILS % (AUTO) 0.4 % (0.0-2.0); EOSINOPHILS % (AUTO) 2.2 % (0.0-6.0); HEMATOCRIT 40 % (33-45); LYMPHOCYTES # (AUTO) 1.4 /CMM (0.8-4.8); MEAN CORPUSCULAR HGB CONC 32 g/dl (31.0-36.0); MEAN CORPUSCULAR VOLUME 97 fL (82-100); MONOCYTES # (AUTO) 0.9 /CMM (0.1-1.30); MONOCYTES % (AUTO) 8.9 % (2.0-12.0); NEUTROPHILS # (AUTO) 7.9 /CMM (1.8-8.9); NEUTROPHILS % (AUTO) 75.5 % (43.0-81.0); PLATELET COUNT (AUTO) 55 /CMM (150-450); RED BLOOD CELL COUNT(AUTO) 4.15 MIL/uL (4.0-5.2); WHITE BLOOD COUNT (AUTO) 10.5 K/uL (4.3-11.0)
[2019-11-22 12:00] VITALS: BP 111/80
== END 2019-11-22 14:40 | DRG 280 ==
LOC: ER 13:09 → ICU 17:43 → TELE1 11-21 18:57 → MEDSG1 11-22 08:00
PROVIDERS: ADMIT Internal Medicine; ATTEND Internal Medicine
PROC: 02HV33Z Insertion of Infusion Device into Superior Vena Cava, Percutaneous Approach (ICD-10-PCS; principal; 2019-11-18)
PROC: B548ZZA Ultrasonography of Superior Vena Cava, Guidance (ICD-10-PCS; 2019-11-18)
DX: I21.4 Non-ST elevation (NSTEMI) myocardial infarction (principal); N17.0 Acute kidney failure with tubular necrosis; G93.40 Encephalopathy, unspecified; I13.0 Hypertensive heart and chronic kidney disease with heart failure and stage 1 through stage 4 chronic kidney disease, or unspecified chronic kidney disease; E87.2 Acidosis; I69.351 Hemiplegia and hemiparesis following cerebral infarction affecting right dominant side; I50.22 Chronic systolic (congestive) heart failure; N18.4 Chronic kidney disease, stage 4 (severe); R57.9 Shock, unspecified; F17.210 Nicotine dependence, cigarettes, uncomplicated; R62.7 Adult failure to thrive; E86.0 Dehydration; Z95.1 Presence of aortocoronary bypass graft; Z95.3 Presence of xenogenic heart valve; G30.9 Alzheimer's disease, unspecified; F02.80 Dementia in other diseases classified elsewhere, unspecified severity, without behavioral disturbance, psychotic disturbance, mood disturbance, and anxiety; E87.5 Hyperkalemia; I25.5 Ischemic cardiomyopathy; E03.9 Hypothyroidism, unspecified; Z88.0 Allergy status to penicillin; Z88.2 Allergy status to sulfonamides; Z95.810 Presence of automatic (implantable) cardiac defibrillator; Z68.24 Body mass index [BMI] 24.0-24.9, adult; D69.6 Thrombocytopenia, unspecified; E11.22 Type 2 diabetes mellitus with diabetic chronic kidney disease; Z79.01 Long term (current) use of anticoagulants; I48.0 Paroxysmal atrial fibrillation; I25.10 Atherosclerotic heart disease of native coronary artery without angina pectoris; I08.3 Combined rheumatic disorders of mitral, aortic and tricuspid valves
CPT/HCPCS: 36415; 71045-TC; 80048-TC; 80053-TC; 80076-TC; 80202-TC; 81000-TC; 82962-TC; 83605-TC; 83690-TC; 84443-TC; 84484-TC; 85025-TC; 85730-TC; 87040-TC; 87070-TC; 87081-TC; 93307-TC; C1751; G0378; J1815; J1940; J1956; J3370; J3490; J7030; J7050; J7060; U0003-CS